=== PATIENT | male | born 1990 | race Caucasian/White ===

== ENCOUNTER 2021-10-26 06:15 | Outpatient (REF) | payer OTHER, SELFPAY ==
[2021-10-26 07:54] LABS: Alanine Aminotransferase 80 U/L (0-40); Albumin Level 4.5 g/dL (3.5-5.0); Alkaline Phosphatase 47 U/L (39-117); Anion Gap 14 (12-20); Aspartate Amino Transferase 70 U/L (5-37); Bilirubin Total 0.9 mg/dL (0.0-1.0); Blood Urea Nitrogen 15 mg/dL (9-16); Calcium 10.1 mg/dL (8.4-10.2); Carbon Dioxide 28 mmol/L (22-29); Chloride 100 mmol/L (96-108); Estimated Glomerular Filt Rate > 60; Glucose Fasting 127 mg/dL (60-99); Potassium 4.2 mmol/L (3.3-5.1); Sodium 138 mmol/L (135-145); Total Protein 7.8 g/dL (6.5-8.0); Uric Acid 5.6 mg/dL (3.4-7.0)
[2021-10-26 07:55] LABS: Estimated Average Glucose 103 mg/dL; Hemoglobin A1c % 5.2 %
[2021-10-26 08:14] LABS: TSH reflex Free T4 5.53 uIU/mL (0.32-4.0)
[2021-10-26 09:13] LABS: Free T4 (Free Thyroxine) 0.97 ng/dL (0.71-1.85)
== END 2021-10-26 06:16 | disposition home or self-care (01) ==
LOC: HO.LAB 06:15
PROVIDERS: PCP Physician Assistant; Visit Provider Physician Assistant
DX: Z13.1 Encounter for screening for diabetes mellitus (principal); E03.9 Hypothyroidism, unspecified; M10.9 Gout, unspecified
CPT/HCPCS: 36415; 80053; 83036; 84439; 84443; 84550

== ENCOUNTER 2022-06-10 16:04 | Outpatient (REF) | payer OTHER, SELFPAY ==
[2022-06-10 17:57] LABS: Alanine Aminotransferase 34 U/L (0-40); Alkaline Phosphatase 84 U/L (39-117); Anion Gap 11 (12-20); Aspartate Amino Transferase 44 U/L (5-37); Bilirubin Total 0.4 mg/dL (0.0-1.0); Blood Urea Nitrogen 16 mg/dL (9-16); Calcium 9.1 mg/dL (8.4-10.2); Carbon Dioxide 29 mmol/L (22-29); Chloride 100 mmol/L (96-108); Estimated Glomerular Filt Rate > 60; Glucose Random 101 mg/dL (60-115); Potassium 3.8 mmol/L (3.3-5.1); Sodium 136 mmol/L (135-145); TSH reflex Free T4 0.25 uIU/mL (0.32-4.0); Total Protein 7.9 g/dL (6.5-8.0)
[2022-06-10 18:43] LABS: Free T4 (Free Thyroxine) 1.11 ng/dL (0.71-1.85)
== END 2022-06-10 16:05 | disposition home or self-care (01) ==
LOC: HO.LAB 16:04
PROVIDERS: PCP Nurse Practitioner Family; Visit Provider Nurse Practitioner Family
DX: E03.9 Hypothyroidism, unspecified (principal)
CPT/HCPCS: 36415; 80053; 84439; 84443

== ENCOUNTER 2023-09-18 17:29 | Outpatient (AMB) | payer SELFPAY ==
[2023-09-18 17:31] VITALS: BP 120/88; PULSE 109; O2SAT 99; BMI 31.4
--- NOTE | 2023-09-18 17:31 | A.OFFPC_ITS ---
Vital Signs 09/18/23 17:31 Height 6 ft Weight 231 lb 4 oz BMI 31.4 BP 120/88 Blood Pressure Location Lt brachial Position Sitting Pulse 109 H Pulse Source Pulse Oximeter Pulse Oximetry (%) 99 Oxygen Delivery Method Room Air Intake Visit Reasons: Ray Larson PE Floor Nurse Required: No Accompanied by: Self / Same As Patient Allergies No Known Allergies Allergy (Verified 09/18/23 17:45) Medication List - Last Reconciled 09/18/23 by Toni Oliveira MD allopurinol 300 mg PO DAILY hydroxyzine HCl 50 mg PO Q8H PRN 30 days levothyroxine 100 mcg PO DAILY sertraline 50 mg PO QAM Tobacco use date assessed: 09/18/23 Dental Screening Dental Screen Date: 09/18/23 Did you have a dental visit in the last 12 months?: Yes Did you have a dental problem in the last 6 months where you did not have access to dental care?: No Was dental information given to patient?: Patient has dentist HPI Ray Larson PE HPI Details Patient comes in today for his annual physical examination - is transferring care from Jojo Michael, who is no longer with the practice Patient states that he has been experiencing recurrent upper back / interscapular pain for over a year now States that he has been seeing his chiropractor regularly for this and that chiropractic treatments that he has been getting helps but only partially and temporarily and he would now like to have this looked into further to hopefully figure out what is causing his back pain and take care of it more permanently Thinks that his back pain may have started over a year ago after he moved a 200 pound battery while at work as he's had no history of back pain or problems before that Adds that he's had some mass over both of his breasts that have been present for a few years now - states that the one on the left breast is slightly bigger and hurts at times Recalls that he has some ultrasound done a few years ago and was advised that his ultrasound came back normal Would like to see somebody about having these removed if possible He denies any headaches or dizziness Denies any chest pains, no shortness of breath No nausea /vomiting, no abdominal pain No change in bowel habits noted Denies any acute urinary symptoms [facility] Medical History (Updated 09/19/23 @ 02:47 by Toni Oliveira MD) Obesity (BMI 30-39.9) Elevated LFTs Anxiety disorder Acquired hypothyroidism Gout Surgical History (Updated 09/19/23 @ 02:11 by Toni Oliveira MD) History of eye surgery History of appendectomy History of shoulder surgery Family History Mother No problems noted. Father No problems noted. Social History Housing: House Alcohol intake: current Alcohol intake frequency: a few times a month Patient Tobacco Use Status: Never used Tobacco service: No Current occupational status: employed Cognitive needs: No Hearing needs: No Vision needs: No Questionnaire PHQ-9 Over the last 2 weeks, how often have you been bothered by any of the following problems? 1. Little interest or pleasure in doing things: not at all 2. Feeling down, depressed, or hopeless: not at all 3. Trouble falling or staying asleep, or sleeping too much: not at all 4. Feeling tired or having little energy: not at all 5. Poor appetite or overeating: not at all 6. Feeling bad about yourself - or that you are a failure or have let yourself or your family down: not at all 7. Trouble concentrating on things, such as reading the newspaper or watching television: not at all 8. Moving or speaking so slowly that other people could have noticed. Or the opposite - being so fidgety or restless that you have been moving around a lot more than usual: not at all 9. Thoughts that you would be better off or of hurting yourself in some way: not at all Total score: 0 Depression Screening Interpretation: Negative Depression Screening Done: Yes 94468 - PHQ-9 Billing: Yes Source: Developed by Drs. Chicho Barragan, Charisse Washington, Russel Alejo and colleagues, with an educational zoe from [employer]. Thrive Questionnaire Date Thrive assessed: 09/18/23 I am a: Patient What is your living situation today?: I have a steady place to live Within the past 12 months, did the food you bought not last and you didn't have the money to get more?: Never true Within the past 12 months, did you worry whether your food would run out before you got money to buy more?: Never true Do you have trouble paying for medicines?: No Do you have trouble getting transportation to medical appointments?: No Do you have trouble paying your heating and electricity bill?: No Do you have trouble taking care of your child, family member or friend?: No Do you have trouble with day-to-day activities such as bathing, preparing meals, shopping, managing finances, etc.?: No Are you currently unemployed and looking for a job?: No Are you interested in more education?: No Please select the resources that you would like help with: None Currently or been in a relationship where the following occur: no concerns reported THRIVE Score: 0 AUDIT C Alcohol Use Questionnaire (AUDIT-C) 1. How often do you have a drink containing alcohol?: Never 3. How often do you have six or more drinks on one occasion?: Never Total Score: 0 Score Reviewed/Action Taken: Yes IVY-7 AMB Questionnaire IVY-7 Date IVY - 7 assessed: 09/18/23 Feeling nervous, anxious, or on edge: 0 = Not at all Not being able to stop or control worryin = Not at all Worrying too much about different things: 0 = Not at all Trouble relaxin = Not at all Being so restless that it is hard to sit still: 0 = Not at all Becoming easily annoyed or irritable: 0 = Not at all Feeling afraid as if something awful might happen: 0 = Not at all Total IVY-7 score (0-4 normal; 5-9 mild; 10-14 moderate; 15-21 severe): 0 Source: Developed by Drs. Chicho Barragan, Charisse Washington, Russel Alejo and colleagues, with an educational zoe from [employer]. IVY-7 Assessment Billing IVY-7 Assessment Tool: IVY-7 Assessment 77590 Review of Systems Const Denies chills, Denies fatigue, Denies fever(s), Denies headache(s), Denies malaise and Denies weakness Eyes Denies blurry vision, Denies change in vision, Denies irritation and Denies itchy eyes ENT Denies dysphagia, Denies dizziness, Denies otalgia, Denies headache(s), Denies nasal congestion, Denies neck pain, Denies odynophagia and Denies sore throat Card Denies chest pain, Denies rapid heart rate, Denies irregular heart rhythm, Denies palpitations and Denies dyspnea Resp Denies chest congestion, Denies cough, Denies dyspnea and Denies wheezing GI Denies abdominal pain, Denies bloating, Denies constipation, Denies dysphagia, Denies heartburn, Denies diarrhea, Denies nausea, Denies odynophagia and Denies vomiting Denies hematuria, Denies difficulty urinating, Denies dysuria, Denies urinary frequency and Denies urinary urgency Musc Reports back pain (over the upper back in between the scapula), Denies arthralgias, Denies joint swelling, Denies muscle weakness and Denies neck pain Skin/Breast Reports breast mass (bilateral - left breast tissue is slightly tender on deep palpation), Denies change in pigmentation, Denies lesions, Denies rash and Denies unusual bruising Neuro Denies dizziness, Denies headache(s), Denies paresthesias and Denies weakness Psych Reports anxiety Endo Denies fatigue and Denies palpitations Aller/Immun Denies itchy eyes and Denies wheezing Physical exam (Primary Care) Vital Signs: Last Vital Signs Pulse 109 H 09/18/23 17:31 BP 120/88 09/18/23 17:31 Pulse Ox 99 09/18/23 17:31 Oxygen Delivery Method Room Air 09/18/23 17:31 BMI result Body Mass Index 31.4 Tobacco/Smoking Status: Tobacco use Status Tobacco use date assessed 09/18/23 09/18/23 17:37 Patient Tobacco Use Status Never used Tobacco 09/18/23 17:37 PHQ-9: PHQ-9 Score PHQ-9: Total score 0 09/18/23 17:52 Depression Screening Interpretation: Negative Thrive Assessment: Date of Thrive Assessment Date Thrive assessed 09/18/23 09/18/23 17:37 Currently or been in a relationship where the following occur: no concerns reported Const General: no acute distress, alert and awake Orientation/consciousness: patient oriented x3 HENMT Head: Yes normocephalic and Yes atraumatic Ears: external ears normal, TM's normal bilaterally and EAC's normal General nose exam: No nasal discharge present Face and sinus: Yes normal facial exam and Yes sinuses nontender Teeth and gingiva: dentition normal Throat: Yes posterior oropharynx normal and Yes tonsils normal (no TP congestion) Eyes Eyelids: Yes eyelids normal Conjunctivae: conjunctivae normal Pupils: Equal, round and reactive pupils present EOM: EOMs intact bilaterally Neck Neck: Yes no lymphadenopathy and Yes supple Thyroid: Thyroid normal Chest Other: (+) palpable and slightly enlarged breast mass/tissue bilaterally - the left side is slightly larger and slightly tender on deep palpation Resp Auscultation: clear to auscultation bilaterally, no rales and no wheezes Cardio Rate: regular rate Rhythm: regular rhythm Heart sounds: no murmurs GI Palpation (GI): Soft to palpation, nontender and No hepatosplenomegaly present Auscultation: normal bowel sounds General: Yes no CVA tenderness Back/Spine/Pelvis Other: (+) mild tenderness on deep palpation over the thoracic spine along the interscapular area Back: no CVA tenderness Thoracic/Lumbar Spine: No lumbar spinal tenderness Skin Lesions: no lesions Rashes: no rashes Neuro General: patient oriented x3, moves all extremities, no focal motor deficits and CN's II-XI intact bilaterally Cranial nerves: Yes Equal, round and reactive pupils present Cognition (Neuro): normal cognition Gait exam (Neuro): Normal gait present Extrem General: Yes no clubbing, cyanosis or edema Assessment and Plan Assessment & Plan (1) Annual physical exam: Code(s): Z00.00 - Encounter for general adult medical examination without abnormal findings Plan: Check labs (2) Acquired hypothyroidism: Code(s): E03.9 - Hypothyroidism, unspecified Plan: Continue Levothyroxine 100 mcg QD Will recheck his TFTs for follow up (3) Gout: Code(s): M10.9 - Gout, unspecified Qualifiers: Gout site: unspecified site Gout etiology: unspecified cause Chronicity: unspecified Qualified Code(s): M10.9 - Gout, unspecified Plan: Patient's serum uric acid level was normal at 5.6 when last checked in October 2021 Reinforced low purine diet Continue Allopurinol 300 mg QD (4) Elevated LFTs: Code(s): R79.89 - Other specified abnormal findings of blood chemistry Plan: (+) Hx of elevated LFTs - work ups done in the past have all been reportedly negative His LFTs were normal or near normal when they were last checked in June 2022 Will have him recheck his LFTs for follow up (5) Impaired fasting glucose: Code(s): R73.01 - Impaired fasting glucose Plan: His FBS was elevated at 127 mg/dl but HgbA1c was normal at 5.2% when last checked in October 2021 Reinforced low calorie/low carb diet Will recheck his FBS and also HgbA1c for follow up (6) Interscapular pain: Code(s): M54.89 - Other dorsalgia Plan: Will send patient for thoracic spine x-rays for further evaluation (7) Gynecomastia: Code(s): N62 - Hypertrophy of breast Plan: He is advised that the cyst/mass that he has on both breasts are normal breast tissues that in his case, are enlarged more than usual He had breast ultrasound and mammography done back in October 2019 that showed mild gynecomastia in the right breast and normal breast tissues in the left side Advised that surgical excision of the breast tissues are not advisable and would not be the recommended treatment for gynecomastia and that the proper course of action here would be to work him up further to see if we can identify the main cause of his enlarged breast tissues Will send him for some additional labs and tests WILLARD for further evaluation He is currently not taking any medications that can contribute to his gynecomastia Will also send him for renal and testicular ultrasound for further evaluation when he has health insurance coverage again - states that he currently does not have any insurance coverage and is trying to get his insurance back (8) Anxiety disorder: Code(s): F41.9 - Anxiety disorder, unspecified Qualifiers: Anxiety disorder type: generalized anxiety disorder Qualified Code(s): F41.1 - Generalized anxiety disorder Plan: Continue Sertraline 50 mg QD and Hydroxyzine 50 mg TID PRN (9) Obesity (BMI 30-39.9): Code(s): E66.9 - Obesity, unspecified Plan: Reinforced diet/exercise as tolerated/lose weight Orders: Orders Comprehensive [place]. Panel Fast 09/18/23 E78.00 - Pure hypercholesterolemia, unspecified, Z00.00 - Encounter for general adult medical examination without abnormal findings UA CC w/rflx Micro + Cult 09/18/23 R30.0 - Dysuria, Z00.00 - Encounter for general adult medical examination without abnormal findings Prostate Specific Antigen 09/18/23 N40.0 - Benign prostatic hyperplasia without lower urinary tract symptoms, N62 - Hypertrophy of breast XR thoracic spine 3V 09/18/23 M54.9 - Dorsalgia, unspecified Complete Blood Count Auto Diff 09/18/23 D64.9 - Anemia, unspecified, Z00.00 - Encounter for general adult medical examination without abnormal findings Lipid Panel 09/18/23 E78.00 - Pure hypercholesterolemia, unspecified, Z00.00 - Encounter for general adult medical examination without abnormal findings Thyroid Stimulating Hormone 09/18/23 E03.9 - Hypothyroidism, unspecified, Z00.00 - Encounter for general adult medical examination without abnormal findings Free T4 (Free Thyroxine) 09/18/23 E03.9 - Hypothyroidism, unspecified, Z00.00 - Encounter for general adult medical examination without abnormal findings Vitamin D 25-OH Total 09/18/23 E55.9 - Vitamin D deficiency, unspecified, Z00.00 - Encounter for general adult medical examination without abnormal findings Uric Acid 09/18/23 M10.9 - Gout, unspecified Follicle Stimulating Hormone Today N62 - Hypertrophy of breast Lutenizing Hormone Today N62 - Hypertrophy of breast HCG Tumor Marker Today N62 - Hypertrophy of breast Coding Level of Care Code Est Pt Prev Care 18-39y(22531) Diagnoses Annual physical exam Z00.00 Acquired hypothyroidism E03.9 Gout, unspecified cause, unspecified chronicity, unspecified site M10.9 Gout site: unspecified site Gout etiology: unspecified cause Chronicity: unspecified Elevated LFTs R79.89 Impaired fasting glucose R73.01 Interscapular pain M54.89 Gynecomastia N62 Generalized anxiety disorder F41.1 Anxiety disorder type: generalized anxiety disorder Obesity (BMI 30-39.9) E66.9 Additional Codes IVY-7 Assessment Billing - IVY-7 Assessment Tool: IVY-7 Assessment 44003 ([id number])
== END 2023-09-18 18:03 | disposition home or self-care (01) ==
PROVIDERS: PCP Internal Medicine; Visit Provider Internal Medicine
DX: Z00.00 Encounter for general adult medical examination without abnormal findings (principal); E03.9 Hypothyroidism, unspecified; Z68.31 Body mass index [BMI] 31.0-31.9, adult; E66.9 Obesity, unspecified; M10.9 Gout, unspecified; R79.89 Other specified abnormal findings of blood chemistry; R73.01 Impaired fasting glucose; M54.89 Other dorsalgia; N62 Hypertrophy of breast; F41.1 Generalized anxiety disorder
CPT/HCPCS: 99395

== ENCOUNTER 2023-12-22 12:32 | Outpatient (REF) | payer OTHER, SELFPAY ==
[2023-12-22 12:50] LABS: MANUAL DIFF FLAG NO
[2023-12-22 14:28] LABS: Basophils Percent Auto 0.6 % (0-2); Eosinophils Absolute Auto 0.1 X10*3/uL (0.0-0.4); Eosinophils Percent Auto 1.8 % (0-4); Hematocrit 42.8 % (42.0-52.0); Hemoglobin 14.6 g/dl (14.0-18.0); Imm Gran Abs Auto 0.03 X10*3/uL (0.00-0.03); Imm Gran Pct Auto 0.6 % (0.0-0.4); Lymphocytes Absolute Auto 2.2 X10*3/uL (1.2-4.9); Lymphocytes Percent Auto 43.1 % (20-40); Mean Corpuscular HGB Conc 34.1 g/dl (31.0-36.0); Mean Corpuscular Hemoglobin 32.6 pg (27.0-33.0); Mean Corpuscular Volume 95.5 fL (80.0-98.0); Mean Platelet Volume 9.8 fL (9.4-12.4); Monocytes Absolute Auto 0.5 X10*3/uL (0.1-1.2); Monocytes Percent Auto 10.5 % (2-11); Neutrophils Absolute Auto 2.2 x10*3/uL (2.0-8.3); Neutrophils Percent Auto 43.4 % (45-73); Platelet Count 244 X10*3/uL (160-400); Red Blood Count 4.48 X10*6/uL (4.60-5.80); Red Cell Distribution Width 12.4 % (11.0-16.0)
[2023-12-22 14:34] LABS: Appearance Urine Clear; Color Urine Yellow; Glucose Urine UA Negative (Negative); Leukocyte Esterase Urine Negative (Negative); Nitrite Urine Negative (Negative); PH 6.5 (5.0-9.0); Urine Blood Negative (Negative); Urine Ketones Negative (Negative); Urine Protein Negative (Neg-Trace)
[2023-12-22 15:02] LABS: Alanine Aminotransferase 44 U/L (0-40); Albumin Level 4.7 g/dL (3.5-5.0); Alkaline Phosphatase 49 U/L (39-117); Anion Gap 16 (12-20); Aspartate Amino Transferase 42 U/L (5-37); Bilirubin Total 0.6 mg/dL (0.0-1.0); Blood Urea Nitrogen 13 mg/dL (9-16); Calcium 10.1 mg/dL (8.4-10.2); Carbon Dioxide 28 mmol/L (22-29); Chloride 103 mmol/L (96-108); Cholesterol 243 mg/dL (<200); Estimated Glomerular Filt Rate > 60; Glucose Fasting 100 mg/dL (60-99); HDL Cholesterol 43 mg/dL (>40); LDL Cholesterol Calculated 175 mg/dL (<100); Potassium 3.8 mmol/L (3.3-5.1); Sodium 143 mmol/L (135-145); Total Protein 8.7 g/dL (6.5-8.0); Triglycerides 126 mg/dL (<150)
[2023-12-22 15:17] LABS: Free T4 (Free Thyroxine) 0.94 ng/dL (0.71-1.85); Thyroid Stimulating Hormone 3.09 uIU/mL (0.32-4.0); Uric Acid 6.4 mg/dL (3.4-7.0); Vitamin D 25-OH Total 36.6 ng/mL (>30)
[2023-12-22 15:27] LABS: Prostate Specific Antigen 0.26 ng/mL (<0.05-4.0)
[2023-12-24 08:14] LABS: Follicle Stimulating Hormone 10.7 mIU/mL (1.4-12.8); HCG Tumor Marker <5 mIU/mL (<5); Lutenizing Hormone 6.3 mIU/mL (1.5-9.3)
== END 2023-12-22 12:33 | disposition home or self-care (01) ==
LOC: HO.LAB 12:32
PROVIDERS: PCP Internal Medicine; Visit Provider Internal Medicine
DX: Z00.00 Encounter for general adult medical examination without abnormal findings (principal); E78.00 Pure hypercholesterolemia, unspecified; R30.0 Dysuria; N40.0 Benign prostatic hyperplasia without lower urinary tract symptoms; N62 Hypertrophy of breast; E03.9 Hypothyroidism, unspecified; M10.9 Gout, unspecified; D64.9 Anemia, unspecified; E55.9 Vitamin D deficiency, unspecified; Z12.5 Encounter for screening for malignant neoplasm of prostate
CPT/HCPCS: 36415; 80053; 80061; 81003; 82306; 83001; 83002; 84153; 84439; 84443; 84550; 84702; 85025

== ENCOUNTER 2024-01-18 23:34 | Emergency (ER) | payer OTHER, SELFPAY ==
[2024-01-18 23:42] VITALS: BP 134/78; PULSE 114; RESP 20; TEMP 36.8; O2SAT 95
--- NOTE | 2024-01-18 23:48 | ED.ALCOHOL ---
HPI - Alcohol General Stated Complaint: etoh neck and back pain Time Seen by Provider: 01/18/24 23:36 Source: patient and EMS Mode of arrival: EMS Limitations: no limitations History of Present Illness ED Provider: Dr. Aurelia Regalado HPI narrative: Patient comes to the emergency room complaining of right-sided neck pain. Patient states that he was drinking alcohol and then had a severe pain on the right side of his neck radiating towards the top of the head, around the neck. Patient states that he was able to feel his muscle spasming. Patient tried to massage it but it did not work. Patient became scared and called 911. Patient states that he was sitting when this happened, denies any recent trauma or falls Related Data Previous Rx's ?Medication ?Instructions ?Recorded allopurinol 300 mg tablet 300 mg PO DAILY #90 tabs 06/26/23 hydroxyzine HCl 50 mg tablet 50 mg PO Q8H PRN anxiety 30 days 06/26/23 #90 tabs sertraline 50 mg tablet 50 mg PO QAM #90 tabs 06/26/23 levothyroxine 100 mcg tablet 100 mcg PO DAILY #30 tabs 01/01/24 cyclobenzaprine 10 mg tablet 10 mg PO TID PRN muscle spasm #7 01/18/24 tabs Allergies Allergy/AdvReac Type Severity Reaction Status Date / Time No Known Allergies Allergy Verified 09/18/23 17:45 Review of Systems Review of Systems: Constitutional : No Weight loss, No Fever, No Chills, No Night Sweats, No Fatigue, No Malaise ENT/Mouth : No Hearing loss, No Ear Pain, No Nasal Congestion, No Sinus Pain, No Hoarseness, No sore throat, No Rhinorrhea, No Swallowing Difficulty Eyes: No Eye Pain, No Swelling, No Redness, No Foreign Body, No Discharge, No Vision Changes Cardiovascular : No Chest Pain, No SOB, No Dyspnea on Exertion, No Orthopnea, No Edema, No Palpitations Respiratory : No Cough, No Sputum, No Wheezing, No Smoke Exposure, No Dyspnea Gastrointestinal : No Nausea, No Vomiting, No Diarrhea, No Constipation, No abdominal Pain, No Hematochezia, No Melena Genitourinary : no irregular bleeding, No Dysuria, No Urinary Frequency, No Hematuria, No Urinary Incontinence, No Urgency, No Flank Pain, No Urinary Flow Changes, No Hesitancy Musculoskeletal : Complaining of a muscle spasm on the right side of the neck posteriorly No Myalgias, No Joint Swelling Skin : No Skin Lesions, No rash Neuro : No Weakness, No Numbness, No Paresthesias, No Loss of Consciousness, No Dizziness, No Headache Psych : No Anxiety/Panic, No Depression, No SI/HI/AH/VH, No Social Issues, admits to drinking alcohol Heme/Lymph: No Bruising, No Bleeding,No Lymphadenopathy Endocrine : No Polyuria, No Polydipsia, No Temperature Intolerance [facility] Past Medical History Medical History (Updated 01/18/24 @ 23:51 by Aurelia Regalado MD) Obesity (BMI 30-39.9) Elevated LFTs Anxiety disorder Acquired hypothyroidism Gout Surgical History (Updated 09/19/23 @ 02:11 by Toni Oliveira MD) History of eye surgery History of appendectomy History of shoulder surgery Family History Family History Mother No problems noted. Father No problems noted. Social History Social History Housing: House Alcohol intake: current Alcohol intake frequency: a few times a month Patient Tobacco Use Status: Never used Tobacco service: No Current occupational status: employed Cognitive needs: No Hearing needs: No Vision needs: No Physical Exam ED Vital Signs: Vital Signs - 24 hr 01/18/24 23:42 Temperature 98.2 F Pulse Rate 114 H Respiratory Rate 20 Blood Pressure 134/78 Pulse Oximetry 95 Oxygen Delivery Method Room Air Const Other: Appearance: Alert. Oriented X3. No acute distress. Eyes: Pupils equal, round and reactive to light. ENT: Pharynx normal. Neck: No C-spine tenderness, normal Section extension, palpable spasm around the sternocleidomastoid muscle. CVS: Normal heart rate and rhythm. Pulses normal. Normal S1 and S2 Respiratory: No respiratory distress. Breath sounds normal. No Wheezing. No rales Abdomen: Soft and nontender. No rigidity. No distention. Skin: Skin warm and dry. Normal skin color. Normal skin turgor. Extremities: No lower extremity edema. No Lacerations. No Rash Neuro: Oriented X 3. No motor deficit. No sensory deficit. Moving all extremities. No slurred speech. CN 2 through 12 grossly intact Psych: calm, cooperative, normal affect Course Course Course Narrative: -patient had a muscle spasm, patient was given p.o. diazepam here in the ED. -patient is awake, alert and oriented x3, seems a bit intoxicated but patient is coherent Medical Decision Making Medical Decision Making MDM Narrative: -patient got 2 mg of p.o. diazepam for muscle spasms -patient is not SI or HI -plan: metabolize to freedom and discharged with muscle relaxants -physician observation started at 23:50 Differential Diagnosis Differential Diagnoses: The differential diagnosis associated with the presentation includes (Anxiety, muscle spasm, contusion) Discharge Plan Discharge Clinical Impression: Muscle spasm, Alcohol intoxication Patient Disposition: Home, Self-Care Instructions: Abuse of Alcohol (ED), Muscle Spasm (ED) Additional Instructions: Please follow-up with your primary care physician tomorrow. If you have any worsening or new symptoms, please return to the emergency room or call 911 Prescriptions: New cyclobenzaprine 10 mg tablet 10 mg PO TID PRN (Reason: muscle spasm) Qty: 7 0RF No Action allopurinol 300 mg tablet 300 mg PO DAILY Qty: 90 2RF hydroxyzine HCl 50 mg tablet 50 mg PO Q8H PRN (Reason: anxiety) 30 Days Qty: 90 3RF sertraline 50 mg tablet 50 mg PO QAM Qty: 90 1RF levothyroxine 100 mcg tablet 100 mcg PO DAILY Qty: 30 0RF Print Language: [place]
[2024-01-18 23:59] VITALS: BP 147/83; PULSE 114; TEMP 36.9; O2SAT 95; BMI 16.3
--- NOTE | 2024-01-19 00:24 | PC.NURSE ---
Pt is a 33 y/o male who presents from home for a c/o atraumatic back/neck pain that started sudden onset while sitting on a couch watching TV. History is significant for known chronic back pain, but pt reports the pain tonight is vastly different from his back pain in the past. At onset, pain in upper back/neck was accompanied by a headache and some dizziness. Pt otherwise denies numbness/tingling in extremities, problems with voiding, visual changes, and any problems or concerns with balance and coordination. Able to move all extremities as expected. Pt further denies any recent illness/fever, recent travel, and any chest pain, difficulty breathing, or abd pain. Reports consuming approximately 6 hard seltzers and smoking approximatley 2 joints between 1800 hours and onset. All medications taken as prescribed and food/fluid intake is WNL.
[2024-01-19] MEDS: diazePAM 2 MG TABLET PO (00:33)
[2024-01-19 06:14] VITALS: BP 122/74; PULSE 78; RESP 17; TEMP 36.6; O2SAT 94
--- NOTE | 2024-01-19 06:30 | PC.NURSE ---
Pt is resting in bed, intermittently sleeping, appears comfortable, no acute distress observed. Pt is easily arousable with verbal stimuli, is calm and cooperative with staff. Changes positions in bed independently as desired. Pt is waiting to be seen by a provider. Will continue to monitor for changes.
[2024-01-19 08:00] VITALS: BP 136/94; PULSE 89; RESP 16; TEMP 36.8; O2SAT 96
== END 2024-01-19 08:15 | disposition home or self-care (01) ==
PROVIDERS: Emergency Provider Emergency Medicine
DX: M62.838 Other muscle spasm (principal); F10.920 Alcohol use, unspecified with intoxication, uncomplicated; Y90.9 Presence of alcohol in blood, level not specified; M54.2 Cervicalgia; R51.9 Headache, unspecified; Z79.899 Other long term (current) drug therapy
CPT/HCPCS: 99284

== ENCOUNTER 2024-09-25 16:28 | Outpatient (AMB) | payer OTHER, SELFPAY ==
[2024-09-25 16:30] VITALS: BP 142/86; PULSE 123; O2SAT 97; BMI 34.8
--- NOTE | 2024-09-25 16:30 | MHC.PC.OV ---
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 Accompanied by: Self / Same As Patient Allergies No Known Allergies Allergy (Verified 09/25/24 16:46) Medication List - Last Reconciled 09/25/24 by Toni Oliveira MD allopurinol 300 mg PO DAILY cyclobenzaprine 10 mg PO TID PRN hydroxyzine HCl 50 mg PO Q8H PRN 30 days levothyroxine 100 mcg PO DAILY sertraline 50 mg PO QAM Tobacco use date assessed: 09/25/24 Dental Screening Dental Screen Date: 09/25/24 Did you have a dental visit in the last 12 months?: Yes Did you have a dental problem in the last 6 months where you did not have access to dental care?: No Was dental information given to patient?: Patient has dentist HPI annual exam HPI Details Patient comes in today for his annual physical examination States that he continues to experience frequent/persistent pain and numbness in both of his feet and that his symptoms have been going on for some time now He described his feet pain as a deep-seated pain and burning sensation that often feels worse at night and when he is on his feet for a long time He was seen by podiatry for the same complaint back in October of 2023 and was started on some Gabapentin 300 mg Q HS at the time but patient states that after he read the possible side effects of the medication, he never took it States that he also never went for the x-rays that we ordered for him and would like to have these ordered again and he will try to get these done WILLARD Adds that his father as well as a few other family members have similar complaints and they have been advised that there is likely a hereditary or genetic predisposition in the family for some form of neuropathy Patient states that he feels okay otherwise He denies any headaches or dizziness Denies any chest pains, no increased SOB No nausea/vomiting, no abdominal pain No change in bowel habits noted He denies any acute urinary symptoms PFS Medical History (Updated 09/26/24 @ 01:38 by Toni Oliveira MD) Pure hypercholesterolemia Obesity (BMI 30-39.9) Elevated LFTs Anxiety disorder Acquired hypothyroidism Gout Surgical History History of eye surgery History of appendectomy History of shoulder surgery Family History Mother No problems noted. Father No problems noted. Social History Housing: House Alcohol intake: current Alcohol intake frequency: a few times a month Patient Tobacco Use Status: Never used Tobacco e-Cigarette/Vaping Use: Never Used service: No Current occupational status: employed Cognitive needs: No Hearing needs: No Vision needs: No Questionnaire PHQ-9 Over the last 2 weeks, how often have you been bothered by any of the following problems? 1. Little interest or pleasure in doing things: not at all 2. Feeling down, depressed, or hopeless: not at all 3. Trouble falling or staying asleep, or sleeping too much: not at all 4. Feeling tired or having little energy: not at all 5. Poor appetite or overeating: not at all 6. Feeling bad about yourself - or that you are a failure or have let yourself or your family down: not at all 7. Trouble concentrating on things, such as reading the newspaper or watching television: not at all 8. Moving or speaking so slowly that other people could have noticed. Or the opposite - being so fidgety or restless that you have been moving around a lot more than usual: not at all 9. Thoughts that you would be better off or of hurting yourself in some way: not at all Total score: 0 Depression Screening Interpretation: Negative Depression Screening Done: Yes 52660 - PHQ-9 Billing: Yes Source: Developed by Drs. Chicho Barragan, Charisse Washington, Russel Alejo and colleagues, with an educational zoe from [employer]. Thrive Questionnaire Date Thrive assessed: 09/25/24 I am a: Patient What is your living situation today?: I have a steady place to live Within the past 12 months, did the food you bought not last and you didn't have the money to get more?: I choose not to answer this question Within the past 12 months, did you worry whether your food would run out before you got money to buy more?: I choose not to answer this question Do you have trouble paying for medicines?: I choose not to answer this question Do you have trouble getting transportation to medical appointments?: I choose not to answer this question Do you have trouble paying your heating and electricity bill?: I choose not to answer this question Do you have trouble taking care of your child, family member or friend?: I choose not to answer this question Do you have trouble with day-to-day activities such as bathing, preparing meals, shopping, managing finances, etc.?: I choose not to answer this question Are you currently unemployed and looking for a job?: I choose not to answer this question Are you interested in more education?: I choose not to answer this question Please select the resources that you would like help with: None Currently or been in a relationship where the following occur: I choose not to answer THRIVE Score: 0 AUDIT C Alcohol Use Questionnaire (AUDIT-C) 1. How often do you have a drink containing alcohol?: 2-3 times a week 2. How many drinks containing alcohol do you have on a typical day when you are drinking?: 3 or 4 3. How often do you have six or more drinks on one occasion?: Less than monthly Total Score: 5 Score Reviewed/Action Taken: Yes IVY-7 AMB Questionnaire IVY-7 Date IVY - 7 assessed: 09/25/24 Feeling nervous, anxious, or on edge: 0 = Not at all Not being able to stop or control worryin = Not at all Worrying too much about different things: 0 = Not at all Trouble relaxin = Not at all Being so restless that it is hard to sit still: 0 = Not at all Becoming easily annoyed or irritable: 0 = Not at all Feeling afraid as if something awful might happen: 0 = Not at all Total IVY-7 score (0-4 normal; 5-9 mild; 10-14 moderate; 15-21 severe): 0 Source: Developed by Drs. Chicho Barragan, Charisse Washington, Russel Alejo and colleagues, with an educational zoe from [employer]. Review of Systems Const Denies chills, Denies fatigue, Denies fever(s), Denies headache(s), Denies malaise and Denies weakness Eyes Denies blurry vision, Denies change in vision, Denies irritation and Denies itchy eyes ENT Denies dysphagia, Denies dizziness, Denies otalgia, Denies headache(s), Denies nasal congestion, Denies neck pain, Denies odynophagia and Denies sore throat Card Denies chest pain, Denies rapid heart rate, Denies irregular heart rhythm, Denies palpitations and Denies dyspnea Resp Denies chest congestion, Denies cough, Denies dyspnea and Denies wheezing GI Denies abdominal pain, Denies bloating, Denies constipation, Denies dysphagia, Denies heartburn, Denies diarrhea, Denies nausea, Denies odynophagia and Denies vomiting Denies hematuria, Denies difficulty urinating, Denies dysuria, Denies urinary frequency and Denies urinary urgency Musc Denies back pain, Denies arthralgias, Denies joint swelling, Denies muscle weakness, Denies neck pain and Reports numbness (in both feet, on and off) Skin/Breast Denies change in pigmentation, Denies lesions, Denies rash and Denies unusual bruising Neuro Reports as per HPI, Denies dizziness, Denies headache(s), Reports numbness (in both feet, on and off), Reports paresthesias (in both feet) and Denies weakness Endo Denies fatigue and Denies palpitations Aller/Immun Denies itchy eyes and Denies wheezing Physical exam (Primary Care) Vital Signs: Last Vital Signs Pulse 123 H 09/25/24 16:30 BP 142/86 H 09/25/24 16:30 Pulse Ox 97 09/25/24 16:30 Oxygen Delivery Method Room Air 09/25/24 16:30 BMI result Body Mass Index 34.8 Tobacco/Smoking Status: Tobacco use Status Tobacco use date assessed 09/25/24 09/25/24 16:37 Patient Tobacco Use Status Never used Tobacco 09/25/24 16:37 e-Cigarette/Vaping Use Never Used 09/25/24 16:37 PHQ-9: PHQ-9 Score PHQ-9: Total score 0 09/26/24 01:21 Depression Screening Interpretation: Negative Thrive Assessment: Date of Thrive Assessment Date Thrive assessed 09/25/24 09/25/24 16:37 Currently or been in a relationship where the following occur: I choose not to answer Const General: no acute distress, alert and awake Orientation/consciousness: patient oriented x3 HENMT Head: Yes normocephalic and Yes atraumatic Ears: external ears normal, TM's normal bilaterally and EAC's normal General nose exam: No nasal discharge present Face and sinus: Yes normal facial exam and Yes sinuses nontender Teeth and gingiva: dentition normal Throat: Yes posterior oropharynx normal and Yes tonsils normal (no TP congestion) Eyes Eyelids: Yes eyelids normal Conjunctivae: conjunctivae normal Pupils: Equal, round and reactive pupils present EOM: EOMs intact bilaterally Neck Neck: Yes no lymphadenopathy and Yes supple Thyroid: Thyroid normal Resp Auscultation: clear to auscultation bilaterally, no rales and no wheezes Cardio Rate: regular rate Rhythm: regular rhythm Heart sounds: no murmurs GI Palpation (GI): Soft to palpation, nontender and No hepatosplenomegaly present Auscultation: normal bowel sounds General: Yes no CVA tenderness Back/Spine/Pelvis Back: no CVA tenderness Thoracic/Lumbar Spine: thoracic and lumbar spine normal to inspection Skin Lesions: no lesions Rashes: no rashes Neuro General: patient oriented x3, moves all extremities, no focal motor deficits and CN's II-XI intact bilaterally Cranial nerves: Yes Equal, round and reactive pupils present Cognition (Neuro): normal cognition Gait exam (Neuro): Normal gait present Extrem General: Yes no clubbing, cyanosis or edema Coding Level of Care Code Est Pt Prev Care 18-39y(66009) Diagnoses Annual physical exam Z00.00 Acquired hypothyroidism E03.9 Gout, unspecified cause, unspecified chronicity, unspecified site M10.9 Chronicity: unspecified Gout etiology: unspecified cause Gout site: unspecified site Pure hypercholesterolemia E78.00 Elevated LFTs R79.89 Impaired fasting glucose R73.01 Neuropathic pain of both feet G57.93 Gynecomastia N62 Anxiety F41.9 Obesity (BMI 30-39.9) E66.9 Additional Codes PHQ-9 - 58566 - PHQ-9 Billing: Yes ([id number]) Assessment & Plan Assessment & Plan (1) Annual physical exam: Code(s): Z00.00 - Encounter for general adult medical examination without abnormal findings Category: Medical Plan: Check labs (2) Acquired hypothyroidism: Code(s): E03.9 - Hypothyroidism, unspecified Category: Medical Plan: Continue Levothyroxine 100 mcg QD Will recheck his TFTs for follow up (3) Gout: Code(s): M10.9 - Gout, unspecified Category: Medical Qualifiers: Chronicity: unspecified Gout etiology: unspecified cause Gout site: unspecified site Qualified Code(s): M10.9 - Gout, unspecified Plan: Reinforced low purine diet Patient states that he has not had any flare ups of gout over the past year and his serum uric acid level has been normal when checked over the past couple of years Continue Allopurinol 300 mg QD for now Will recheck his serum uric acid level WILLARD for follow up (4) Pure hypercholesterolemia: Code(s): E78.00 - Pure hypercholesterolemia, unspecified Category: Medical Plan: Patient is advised/reminded that his cholesterol level was elevated when last checked about a year ago, with his total cholesterol at 243 mg/dl and LDL cholesterol at 175 mg/dl back in December 2023 Reinforced low cholesterol diet Will recheck his fasting lipids for follow up (5) Elevated LFTs: Code(s): R79.89 - Other specified abnormal findings of blood chemistry Category: Medical Plan: His LFTs were again slightly elevated when they were last checked in December 2023, likely due to hepatosteatosis related to his weight Will recheck his LFTs for follow up and will continue to monitor his LFTs regularly (6) Impaired fasting glucose: Code(s): R73.01 - Impaired fasting glucose Category: Medical Plan: His FBS was borderline at 100 mg/dl when last checked in December 2023; his HgbA1c was normal at 5.2% when checked a couple of years ago Reinforced low calorie/low carb diet Will recheck his FBS and HgbA1c for follow up (7) Neuropathic pain of both feet: Code(s): G57.93 - Unspecified mononeuropathy of bilateral lower limbs Category: Medical Plan: He was seen and evaluated for this issue by podiatry last year and was advised that he likely has neuropathy of both feet He was started on a trial of Gabapentin 300 mg Q HS but patient decided not to take the Rx as he does not like the potential side effects listed on the PI of the Rx He was also sent for x-rays of both feet at the time but he did not get these done - would like to have his x-rays ordered again and he will try to get these done [facility] - x-rays of both feet reordered per request Patient reports (+) strong family history of neuropathy - CMT (Mdtbzbi-Kmjal-Kinmu disease) should be considered in the differential Will send patient for now for EMG and NCV of both lower extremities for further evaluation Will also include some additional labs to his current orders for further evaluation Have advised patient that at some point, genetic testing may be required or helpful if his test results strongly suggest a hereditary cause of his neuropathic symptoms (8) Gynecomastia: Code(s): N62 - Hypertrophy of breast Category: Medical Plan: He has had breast US done a few years ago in 2019 that revealed (+) mild gynecomastia on the right breast but normal left breast tissues Labs done last year for further evaluation have been unrevealing Will check his serum estrogen and testosterone level for further evaluation Have discussed with patient as well last year that his weight may be contributing to his gynecomastia He did request for surgical referral for excision but he has been advised that as this is considered a cosmetic procedure, it may not be covered by insurance but we can consider referring him for surgical consultation if all of his work ups come back normal or negative (9) Anxiety: Code(s): F41.9 - Anxiety disorder, unspecified Category: Medical Plan: Continue Sertraline 50 mg QD and Hydroxyzine 50 mg TID PRN (10) Obesity (BMI 30-39.9): Code(s): E66.9 - Obesity, unspecified Category: Medical Plan: Reinforced diet/exercise as tolerated/lose weight Plan Follow up in 6 months Orders: Orders NE nerve conduction velocity 09/25/24 G57.93 - Unspecified mononeuropathy of bilateral lower limbs, R20.0 - Anesthesia of skin, R20.2 - Paresthesia of skin NE electromyogram (EMG) 09/25/24 G57.93 - Unspecified mononeuropathy of bilateral lower limbs, R20.0 - Anesthesia of skin, R20.2 - Paresthesia of skin Comprehensive [place]. Panel Fast 09/25/24 E78.00 - Pure hypercholesterolemia, unspecified, G57.93 - Unspecified mononeuropathy of bilateral lower limbs, M25.50 - Pain in unspecified joint UA CC w/rflx Micro + Cult 09/25/24 G57.93 - Unspecified mononeuropathy of bilateral lower limbs, M25.50 - Pain in unspecified joint, R30.0 - Dysuria Vitamin B12 and Folate 09/25/24 E53.8 - Deficiency of other specified B group vitamins, G57.93 - Unspecified mononeuropathy of bilateral lower limbs, M25.50 - Pain in unspecified joint OMA Reflex Titer and Pattern 09/25/24 G57.93 - Unspecified mononeuropathy of bilateral lower limbs, M25.50 - Pain in unspecified joint Rheumatoid Factor 09/25/24 G57.93 - Unspecified mononeuropathy of bilateral lower limbs, M25.50 - Pain in unspecified joint C Reactive Protein 09/25/24 G57.93 - Unspecified mononeuropathy of bilateral lower limbs, M25.50 - Pain in unspecified joint Erythrocyte Sedimentation Rate 09/25/24 G57.93 - Unspecified mononeuropathy of bilateral lower limbs, M25.50 - Pain in unspecified joint, M79.7 - Fibromyalgia XR foot RT min 3V 09/25/24 G57.93 - Unspecified mononeuropathy of bilateral lower limbs Estrogen 09/25/24 N62 - Hypertrophy of breast Prolactin 09/25/24 N62 - Hypertrophy of breast Complete Blood Count Auto Diff 09/25/24 D64.9 - Anemia, unspecified, G57.93 - Unspecified mononeuropathy of bilateral lower limbs, M25.50 - Pain in unspecified joint Lipid Panel 09/25/24 E78.00 - Pure hypercholesterolemia, unspecified, G57.93 - Unspecified mononeuropathy of bilateral lower limbs, M25.50 - Pain in unspecified joint Vitamin D 25-OH Total 09/25/24 E55.9 - Vitamin D deficiency, unspecified, G57.93 - Unspecified mononeuropathy of bilateral lower limbs, M25.50 - Pain in unspecified joint XR foot LT min 3V 09/25/24 G57.93 - Unspecified mononeuropathy of bilateral lower limbs Free T4 (Free Thyroxine) 09/25/24 E03.9 - Hypothyroidism, unspecified Uric Acid 09/25/24 M10.9 - Gout, unspecified Thyroid Stimulating Hormone 09/25/24 E03.9 - Hypothyroidism, unspecified Testosterone, Total 09/25/24 N62 - Hypertrophy of breast Hemoglobin A1c 09/25/24 R73.01 - Impaired fasting glucose Medications: Refilled allopurinol 300 mg PO DAILY 90 tabs 0RF M10.9 - Gout, unspecified sertraline 50 mg PO QAM 90 tabs 0RF F41.9 - Anxiety disorder, unspecified levothyroxine 100 mcg PO DAILY 90 tabs 1RF E03.9 - Hypothyroidism, unspecified Discontinued cyclobenzaprine Discontinued Reason: Patient no longer taking 10 mg PO TID PRN 7 tabs 0RF muscle spasm
== END 2024-09-25 17:01 | disposition home or self-care (01) ==
LOC: HO.HMCH 16:29
PROVIDERS: PCP Internal Medicine; Visit Provider Internal Medicine
DX: Z00.00 Encounter for general adult medical examination without abnormal findings (principal); E03.9 Hypothyroidism, unspecified; E66.9 Obesity, unspecified; Z68.34 Body mass index [BMI] 34.0-34.9, adult; M10.9 Gout, unspecified; E78.00 Pure hypercholesterolemia, unspecified; R79.89 Other specified abnormal findings of blood chemistry; R73.01 Impaired fasting glucose; G57.93 Unspecified mononeuropathy of bilateral lower limbs; N62 Hypertrophy of breast; F41.9 Anxiety disorder, unspecified

== ENCOUNTER → 2024-09-25 16:28 | Outpatient (BNVA) | payer OTHER, SELFPAY | PROVIDERS: PCP Internal Medicine; Visit Provider Internal Medicine | DX: Z00.00 Encounter for general adult medical examination without abnormal findings (principal); E03.9 Hypothyroidism, unspecified; M10.9 Gout, unspecified; E78.00 Pure hypercholesterolemia, unspecified; R79.89 Other specified abnormal findings of blood chemistry; R73.01 Impaired fasting glucose; G57.93 Unspecified mononeuropathy of bilateral lower limbs; N62 Hypertrophy of breast; F41.9 Anxiety disorder, unspecified; E66.9 Obesity, unspecified; Z68.34 Body mass index [BMI] 34.0-34.9, adult; Z79.899 Other long term (current) drug therapy | CPT/HCPCS: 96127 ==

== ENCOUNTER 2024-11-05 09:14 | Outpatient (REF) | payer OTHER, SELFPAY ==
--- NOTE | ~2024-11-05 | XR_ITS ---
XR FOOT DYLON 3V HISTORY: Bilateral foot pain. Unspecified mononeuropathy bilateral lower limbs. COMPARISON: No prior. TECHNIQUE: 3 views of the bilateral feet were obtained. FINDINGS: RIGHT FOOT: No fracture, dislocation, or suspicious bone lesion. Joint spaces are preserved. Normal alignment. Normal plantar arch. No evidence of ankle joint effusion. Soft tissues appear normal. LEFT FOOT: No fracture, dislocation, or suspicious bone lesion. Joint spaces are preserved. Normal alignment. Normal plantar arch. No evidence of ankle joint effusion. Soft tissues appear normal. XR/XR Foot Dylon 3V IMPRESSION: LEFT FOOT: 1. Normal. RIGHT FOOT: 1. Normal. Electronically signed by: Jose Limon MD 11/07/2024 12:09 PM EDT
--- NOTE | ~2024-11-05 | XR_ITS ---
EXAMINATION: XR LUMBOSACRAL SPINE CLINICAL INFORMATION: M54.50 - Low back pain, unspecified COMPARISON: None available. TECHNIQUE: Three views of the lumbosacral spine. FINDINGS: Transitional lumbosacral anatomy with partial sacralization of the L5 vertebral body. There is pseudoarticulation of the transverse processes of L5 with the bilateral sacral alae. The vertebral bodies and posterior elements are normal. Vertebral alignment is normal. No subluxation. There is mild to moderate disc space narrowing L5-S1. Disc spaces otherwise preserved. There is mild facet degeneration spanning L4-S1. Normal facet alignment. The paraspinal soft tissues are normal. Surgical clips project over the right iliac wing. XR/XR lumbar spine 2-3V IMPRESSION: Mild/early degenerative changes most notable L4-S1. Electronically signed by: Jose Limon MD 11/07/2024 12:06 PM EDT
--- NOTE | 2024-11-05 09:17 | EMG_ITS ---
Bilateral tibial and peroneal motor studies were performed. Bilateral superficial peroneal, sural, and median and lateral plantar mixed sensory studies were performed. Tibial H reflexes were obtained and paraspinal muscles were tested with a needle. IMPRESSION: Mild to moderate mostly sensory peripheral neuropathy. MD KARLA Aguayo/TEODOROL / [id number]
--- OUTSIDE RECORDS SUMMARY | 2024-11-05 10:02 | XMS_ITS ---
[facility] Address [address] [place] [address] Care Team Providers Care Non Food Receiving Clerk Name Role Phone Tee FAM, [place] Primary Care Provider Sri Scherer Unavailable [phone] Allergies No Known Allergies REASON FOR VISIT Pcp-09/30, Ingrown nail Medications Medication SIG (Take, Route, Frequency, Duration) Notes Start Date End Date Status Keflex 500 MG 1 capsule Orally sheyla ry 12 hrs for 5 days 08/30/2023 Active Sertraline HCl 50 MG 1 tablet Orally Onc e a day for 30 day(s) Active Levothyroxine Sodium 100 MCG 1 tablet in the morning on an empty stomach Orally Once a day for 30 day(s) Active hydrOXYzine HCl 50 MG TAKE 1 TABLET BY M OUTH EVERY 8 HOURS NEEDED FOR ANXIETY Oral for 30 Days Active Neurontin 300 MG 1 capsule Orally Onc e a day at night for 90 days 10/13/2023 Active Allopurinol 300 MG 1 tablet Orally Once a day for 30 day(s) Active Social History Tobacco Use: Social History Observation Description Date Details (start date - stop date) Never Smoker NA - NA Tobacco Use/Smoking Question Answer Notes Are you a: nonsmoker Additional Findings: Tobacco Non-User Current no n-smoker Tobacco use other than smoking: Question Answer Notes Are you an other tobacco user? No Vital Signs Height 6ft in 01/26/2024 Weight 230 lbs 01/26/2024 BMI 31.19 kg/m2 01/26/2024 Encounters Encounter Location Date Provider Diagnosis [facility] [address] [place] [address] 01/26/2024 Sri Cabezas Ingrown nail L60.0 Assessments Encounter Date Diagnosis (ICD Code) Assessment Notes Treatment Notes Treatment Clinical Notes Section Notes 01/26/2024 Ingrown nail (ICD-10 - L60.0) Plan Of Treatment Medication Medication Name Sig Start Date Stop Date Notes Keflex 500 MG 1 capsule Orally every 12 hrs for 5 days Next Appt Details Follow Up: 2-4 Weeks, Reason : Procedure Notes * Category Sub-Category Detail Notes Matricectomy (OP NOTE) Consent The patie nt was brought to the examination room and placed on the table in a supine position. The pre/lilian/postoperative course, risks, complications and alternatives were discussed, understood and accepted by the patient. No guarantees were given regarding the surgical outcome Procedure A digital prep with alcohol or betadine was performed. 3cc of 1 percent Xylocaine Plain local anesthetic was administered to the toe via digital block utilizing aseptic technique. A digital touriquet was applied. The affected toenail portion was undermined, incised and resected to the eponychium and matrix. It was noted to be significantly incurvated and hypertrophied. The nailbed and matrix were curetted and the nail groove, bed and matrix were cauterized with Phenol, 3 applications of 30 seconds each from a cotton tip applicator, no underling bone was identified. The surrounding skin was protected from the Phenol with Bacitracin ointment. The tourniquet was released and capillary fill time was intact to the digit. A sterile Bacitracin dressing was applied Disposition Disposition: The pat ient tolerated the procedure and anesthesia well and left in good condition, alert, oriented and stable in no acute distress. Local wound care instructions were discussed and dispensed. There were no complications and the prognosis is favorable, Recommended alternating/staggering Tylenol XS 2 tabs and Motrin 600mg q 6 hrs ea for discomfort, Rx narcotic postop pain meds were deferred Location Bilateral borders, T A Progress Notes * Acosta ROSENBERGDOB:1990 ( 33 yo M)Acc No.[id number]:01/26/2024 Progress Note Patient:?Acosta Rosenberg Provider:?Sri Cabezas DPM :1990???Age:33 Y???Sex:Male Luis Felipe e:01/26/2024 Address:[address] [place] [address] [id number] Pcp:Toni Oliveira MD Subjective: * Chief Complaints: * ???Pcp-09/30Inggodfreyn nail * ROS:?General/Constitutional:?Nausea?denies.?Vomiting?denies.?Hunger Thirst?denies.?Loss appetite?denies.?Chills?denies.?Fatigue?denies.?Fever?denies.?Night Sweats?denies.?Unexplained weight loss?denies.?Unexplained weight gain?denies.?HEENTM:?Dentures?denies.?Dizziness?denies.?Glasses/contacts?denies.?Retinopathy?de nies.?Blurred/double vision?denies.?TMJ?denies.?Discharge/drainage?denies.?Implants?denies.?Sore throat?denies.?Dental implants?denies.?Hard of hearing ?denies.?Difficulty chewing/swallowing/speaking?denies.?Nose bleeds?denies.?Sore mouth?denies.?Respiratory:?On Oxygen?denies.?Pneumonia/pleurisy?denies.?Bronchitis?denies.?Emphysema?denies.?C oughing?denies.?Cough blood?denies.?Shortness of breath?denies.?Wheezing?denies.?Cardiovascular:?Pacemaker?denies.?MVP?denies.?WPW?denies.?CHF?denies.?Heart attack?denies.?Septal defect?denies.?Rapid beat?denies.?Chest pain ?denies.?Atrial Fib.?denies.?Murmur/Palpitations?denies.?Gastrointestinal:?Hemorrhoids?denies.?Stomach/Abdominal pain?denies.?Dark blood stool?denies.?Irritable bowel ?denies.?Constipation?denies.?Diarrhea?denies.?Hematology:?Swelling?denies.?Clots?denies.?Varicose Veins?denies.?Bruising?denies.?Bleeding problem?denies.?Genitourinary:?Blood urine?denies.?Frequent/Painfu/urination/bladder control?denies.?Kidney stones?denies.?Infection (UTI)?denies.?Nephropathy?denies.?sex trans dis (STD)?denies.?Prostate?denies.?Musculoskeletal:?Hammertoes?denies.?Bunions?denies.?Back Pain?admits.?Muscle Cramps/ Resting?denies.?Muscle cramps / walking?denies.?Generalized aches and pains?admits.?Weakness?denies.?Integ.:?Lorenzo?denies.?Scars?denies.?Corns/calluses?admits.?Ingrown nails?denies.?Painful nails?denies.?Open Sores?denies.?Rashes?denies.?Neurologic:?Difficulty sleeping?denies.?Brain disorder?denies.?Numbness?admits.?Balance trouble?denies.?Confusion?denies.?Fainting/blackouts?denies.?Tingling?admits.?Tr emors?denies.? * Medical History:? * Surgical History:?shoulder s urgery 2010 * Hospitalization/Major Diagno stic Procedure:?Denies Past Hospitalization * Family History:?Mother: marcela mendez.?Father: alive, foot problems, diagnosed with Other specified conditions influencing health status.?Paternal Grand Father: diagnosed with Unspecified heart disease.? * Social History:?Tobacco Use:?Tobacco Use/Smoking?Are you a:?nonsmoker ?Additional Findings: Tobacco Non-User?Current non-smoker ?Tobacco use other than smoking?Are you an other tobacco user??No ???Miscellaneous:?Caffeine: yes, frequency:, 2-3 cups per day. ?no Children. ?Exercise: yes, walking, working. ?Marital status: single. ?Occupation: [employer]. * Medications:?TakingAllopurin ol 300 MG Tablet 1 tablet Orally Once a daySertraline HCl 50 MG Tablet 1 tablet Orally Once a dayLevothyroxine Sodium 100 MCG Tablet 1 tablet in the morning on an empty stomach Orally Once a dayhydrOXYzine HCl 50 MG Tablet TAKE 1 TABLET BY MOUTH EVERY 8 HOURS NEEDED FOR ANXIETY Oral Neurontin 300 MG Capsule 1 capsule Orally Once a day at nightKeflex 500 MG Capsule 1 capsule Orally every 12 hrsMedication List reviewed and reconciled with the patientTaking Allopurinol 300 MG Tablet 1 tablet Orally Once a dayTaking Sertraline HCl 50 MG Tablet 1 tablet Orally Once a dayTaking Levothyroxine Sodium 100 MCG Tablet 1 tablet in the morning on an empty stomach Orally Once a dayTaking hydrOXYzine HCl 50 MG Tablet TAKE 1 TABLET BY MOUTH EVERY 8 HOURS NEEDED FOR ANXIETY Oral Taking Neurontin 300 MG Capsule 1 capsule Orally Once a day at nightTaking Keflex 500 MG Capsule 1 capsule Orally every 12 hrsMedication List reviewed and reconciled with the patient * Allergies:?N.K.D.A.yes[Aller gies Verified] Objective: * Vitals:?Ht: 6ft, Wt:230, BMI :31.19, Shoe size: 12, Ht-cm: 182.88 cm, Wt-k.33 kg. * Examination: ???Ingrown Nail: ?INSPECTION:?Reveals incurvation, pain on palpation, groove hypertrophy Bilateral nail borders TA.? Assessment: * Assessment: 1.?Ingrown nail - L60.0 (Yenni shelton)? Plan: * Treatment: * Procedures:?Matricectomy (OP NOTE):?Location?Bilateral borders, TA.?Consent?The patient was brought to the examination room and placed on the table in a supine position. The pre/lilian/postoperative course, risks, complications and alternatives were discussed, understood and accepted by the patient. No guarantees were given regarding the surgical outcome.?Procedure?A digital prep with alcohol or betadine was performed. 3cc of 1 percent ?Xylocaine Plain local anesthetic was administered to the toe via digital block utilizing aseptic technique. A digital touriquet was applied. The affected toenail portion was undermined, incised and resected to the eponychium and matrix. It was noted to be significantly incurvated and hypertrophied. The nailbed and matrix were curetted and the nail groove, bed and matrix were cauterized with Phenol, 3 applications of 30 seconds each from a cotton tip applicator, no underling bone was identified. The surrounding skin was protected from the Phenol with Bacitracin ointment. The tourniquet was released and capillary fill time was intact to the digit. A sterile Bacitracin dressing was applied .?Disposition?Disposition: The patient tolerated the procedure and anesthesia well and left in good condition, alert, oriented and stable in no acute distress. Local wound care instructions were discussed and dispensed. There were no complications and the prognosis is favorable, Recommended alternating/staggering Tylenol XS 2 tabs and Motrin 600mg q 6 hrs ea for discomfort, Rx narcotic postop pain meds were deferred.? * Procedure Codes:?85638 REMOV AL OF NAIL BED * Follow Up:?2-4 Weeks * Images: * Sign off status: Completed true * Provider:?Sri Cabezas DPM Date:? Generated for Daniel fowler/Aaron/Rekha on:?11/05/2024 10:02 AM EDT History and Physical Notes * Examination Category Sub-Category Detail Notes Category Not es Ingrown Nail INSPECTION: Reveals incurvat ion, pain on palpation, groove hypertrophy Bilateral nail borders TA
--- OUTSIDE RECORDS SUMMARY | 2024-11-05 10:02 | XMS_ITS | Patient Health Record ---
Author Organization [facility] Tomeka malvin Sushil Address [address] [place] [address] Care Team Providers Care Informatics Manager Name Role Phone Tee FAM, [place] Primary Care Provider Sri Scherer Unavailable [phone] Allergies No Known Allergies Reason For Referral No Information Medications Medication SIG (Take, Route, Frequency, Duration) Notes Start Date End Date Status Levothyroxine Sodium 100 MCG 1 tablet in the morning on an empty stomach Orally Once a day for 30 day(s) Active hydrOXYzine HCl 50 MG TAKE 1 TABLET BY M OUTH EVERY 8 HOURS NEEDED FOR ANXIETY Oral for 30 Days Active Allopurinol 300 MG 1 tablet Orally Once a day for 30 day(s) Active Sertraline HCl 50 MG 1 tablet Orally Onc e a day for 30 day(s) Active Neurontin 300 MG 1 capsule Orally Onc e a day at night for 90 days 10/13/2023 Active Keflex 500 MG 1 capsule Orally sheyla ry 12 hrs for 5 days 08/30/2023 Active Social History Tobacco Use: Social History Observation Description Date Details (start date - stop date) Never Smoker NA - NA Tobacco Use/Smoking Question Answer Notes Are you a: nonsmoker Additional Findings: Tobacco Non-User Current no n-smoker Alcohol Screen Question Answer Notes Did you have a drink contain ing alcohol in the past year? Yes How often did you have a dri nk containing alcohol in the past year? 2 to 3 times a week (3 points) Points 3 Interpretation Negative Tobacco use other than smoking: Question Answer Notes Are you an other tobacco user? No Problems Problem Type SNOMED Code ICD Code Onset Dates Problem Status W/U Status Risk Notes Problem 706758124 Neuropathy (G62.9) Active confirmed Problem Ulcer of toe of left foot (disorder) (5867406451201 9102) Skin ulcer of toe of left foot, limited to breakdown of skin (L97.521) Active confirmed Vital Signs Height 6ft in 02/09/2024 Weight 230 lbs 02/09/2024 BMI 31.19 kg/m2 02/09/2024 Encounters Encounter Location Date Provider Diagnosis [facility] [address] 01/26/2024 Sri Perica Ingrown nail L60.[address] [address] 02/09/2024 Sri Perica Skin ulcer of toe of left foot, limited to breakdown of skin L97.[address] [address] 01/18/2024 Sri Perica Cellulitis of left toe L03.032 Assessments Encounter Date Diagnosis (ICD Code) Assessment Notes Treatment Notes Treatment Clinical Notes Section Notes 01/18/2024 Cellulitis of left toe (ICD-10 - L03.032) 01/26/2024 Ingrown nail (ICD-10 - L60.0) 02/09/2024 Skin ulcer of toe of left foot, limited to breakdown of skin (ICD-10 - L97.521) Patient Educated with: WOUND CARE INSTRUCTIONS.p df (WOUND CARE INSTRUCTIONS.p df) 02/09/2024 Other Patient Educated with: WOUND CARE INSTRUCTIONS.p df (WOUND CARE INSTRUCTIONS.p df) Plan Of Treatment Pending Test Test Name Order Date X ray : Foot, left 3V 10/13/2023 X ray : Foot, right 3V 10/13/2023 Insurance Providers Payer Name Payer Address Payer Phone Subscriber Number Group Number Insured Name Patient Relationship to Insured Coverage Start Date Coverage End Date [facility] [address] [facility] [place] [id number] Acosta Rosenberg Self - patient is the insured Medical (General) History Medical History History ICD Code Anxiety Gout thyroid Surgical History Surgery Date(Month/Year) shoulder surgery 2010
--- OUTSIDE RECORDS SUMMARY | 2024-11-05 10:02 | XMS_ITS ---
Author Organization [facility] Tomeka Ling Address [address] [facility] [place] [address] Care Team Providers Care Coiled Coil Inspector Name Role Phone Tee FAM, [place] Primary Care Provider Sri Scherer Unavailable [phone] Allergies No Known Allergies REASON FOR VISIT Pcp-09/30, Open sore - Toe Medications Medication SIG (Take, Route, Frequency, Duration) Notes Start Date End Date Status Levothyroxine Sodium 100 MCG 1 tablet in the morning on an empty stomach Orally Once a day for 30 day(s) Active hydrOXYzine HCl 50 MG TAKE 1 TABLET BY M OUTH EVERY 8 HOURS NEEDED FOR ANXIETY Oral for 30 Days Active Sertraline HCl 50 MG 1 tablet Orally Onc e a day for 30 day(s) Active Neurontin 300 MG 1 capsule Orally Onc e a day at night for 90 days 10/13/2023 Active Keflex 500 MG 1 capsule Orally sheyla ry 12 hrs for 5 days 08/30/2023 Active Allopurinol 300 MG 1 tablet Orally [...] Problem Status W/U Status Risk Notes Problem Ulcer of toe of left foot (disorder) ([id number] 144775) Skin ulcer of toe of left foot, limited to breakdown of skin (L97.521) Active confirmed Vital Signs Height 6ft in 02/09/2024 Weight 230 lbs 02/09/2024 BMI 31.19 kg/m2 02/09/2024 Encounters Encounter Location Date Provider Diagnosis [facility] [place] [address] [place] [address] 02/09/2024 Sri Cabezas Skin ulcer of toe of left foot, limited to breakdown of skin L97.521 Assessments Encounter Date Diagnosis (ICD Code) Assessment Notes Treatment Notes Treatment Clinical Notes Section Notes 02/09/2024 Skin ulcer of toe of left foot, limited to breakdown of skin (ICD-10 - L97.521) Patient Educated with: WOUND CARE INSTRUCTIONS.p df (WOUND CARE INSTRUCTIONS.p df) 02/09/2024 Other Patient Educated with: WOUND CARE INSTRUCTIONS.p df (WOUND CARE INSTRUCTIONS.p df) Plan Of Treatment Treatment Notes Assessment Notes Skin ulcer of toe of left fo ot, limited to breakdown of skin Patient Educated with: WOUND CARE INSTRUCTIONS.pdf (WOUND CARE INSTRUCTIONS.pdf) Other Patient Educated wit h: WOUND CARE INSTRUCTIONS.pdf (WOUND CARE INSTRUCTIONS.pdf) Next Appt Details Follow Up: prn, Reason: Procedure Notes * Category Sub-Category Detail Notes Debride skin< 25 sq cm Open wound Physician of record performed open wound selective debridement of first 25 sq cm or less, of devitilized necrotic/nonviable soft tissue, fibrin, and exudate extending from the epidermis through the dermis, utilizing sharp dissection with sterile 15 blade, and/or tissue nippers. Sterile antibiotic dressing applied, ANESTHESIA- was DEFERRED, Pt tolerant to pain, Hemostasis was achieved through direct pressure. Post debridement measurements: 3 mm x 2 mm x 2 mm. Character of the wound post debridement is stable (96732) , The patient is to apply Antibiotic Oint. to the wound and cover with a DSD , The patient is to cont the local wound care as directed Progress Notes * Acosta ROSENBERGDOB:1990 ( 33 yo M)Acc No.[id number]:02/09/2024 Progress Notes Patient:?Acosta Rosenberg Provider:?Sri Cabezas DPM :1990???Age:33 Y???Sex:Male Luis Felipe e:02/09/2024 Address:[address] [place] [address] [id number] Pcp:Toni Oliveira MD Subjective: * Chief Complaints: * ???Pcp-09/30Open sore - Toe * ROS:?General/Constitutional:?Nausea?denies.?Vomiting?denies.?Hunger Thirst?denies.?Loss appetite?denies.?Chills?denies.?Fatigue?denies.?Fever?denies.?Night Sweats?denies.?Unexplained weight loss?denies.?Unexplained [...] Procedure:?Denies Past Hospitalization * Family History:?Mother: marcela alvarado?Father: alive, foot problems, diagnosed with Other specified conditions influencing health status.?Paternal Grand Father: diagnosed with Unspecified heart disease.? * Social History:?Tobacco Use:?Tobacco Use/Smoking?Are you a:?nonsmoker ?Additional Findings: Tobacco Non-User?Current non-smoker ?Tobacco use other than smoking?Are you an other tobacco user??No ???Miscellaneous:?Caffeine: yes, frequency:, 2-3 cups per day. ?no Children. ?Exercise: yes, walking, working. ?Marital status: single. ?Occupation: [employer]. * Medications:?TakingAllopurin ol 300 MG Tablet 1 [...] Ht-cm: 182.88 cm, Wt-k.33 kg. * Examination: ???Dermatologic: ?ULCER:? LOCATION, B/L TA SIZE, 3 mm X 2 mm X 2mm, BASE, granular, RIM, hyperkeratotic, UNDERMINING, absent, TRACKING, Full thickness breakdown of skin, DRAINAGE, serosanguineous, mild, NECROTIC TISSUE, loosely-adherent, yellow slough, MALODOR, absent, CALOR, absent, ERYTHEMA, absent, PAIN ON PALPATION, absent.? Assessment: * Assessment: 1.?Skin ulcer of toe of left foot, limited to breakdown of skin - L97.521, Response to treatment? Plan: * Treatment: 2.?Others? Notes: Patient Educated with: WOUND CARE INSTRUCTIONS.pdf (WOUND CARE INSTRUCTIONS.pdf)?? * Procedures:?Debride skin< 25 sq cm:?Open wound?Physician of record performed open wound selective debridement of first 25 sq cm or less, of devitilized necrotic/nonviable soft tissue, fibrin, and exudate extending from the epidermis through the dermis, utilizing sharp dissection with sterile 15 blade, and/or tissue nippers. Sterile antibiotic dressing applied, ANESTHESIA- was DEFERRED, Pt tolerant to pain, Hemostasis was achieved through direct pressure. Post debridement measurements: 3 mm x 2 mm x 2 mm. Character of the wound post debridement is stable (17960) , The patient is to apply Antibiotic Oint. to the wound and cover with a DSD , The patient is to cont the local wound care as directed.? * Procedure Codes:?56047 ACTIV E WOUND CARE/20 CM OR <, Modifiers: XS * Preventive Medicine:? ??Counseling:?Ulcer:?A detailed plan of care was reviewed with the patient. We emphasized the fact that the patient takes on an active participating role in the treatment process and emphasized to them that they are an included, valued, and important member of the wound healing team in order to reach an expedient successful outcome. The patient agreed to follow their medically recommended diet while increasing their protein intake if safely able to do so, maintain proper bodily hydaration, abide by weight-bearing restrictions at all times, quit all current smoking habits if any, and diligently follow any/all dressing change instructions. It was clearly made known to the patient that if they fail to do their part, they will likely extend their course of treatment as well as possibly increase their risk of adverse events including amputation. The patient was instructed on importance of proper wound care consisting of pressure reduction, and proper maintainance of a moist wound environment. The patient is to cleanse the wound with warm soapy water/peroxide/saline, or betadine BID based on product availability. The patient is to apply Antibiotic to the wound and cover with a DSD as directed. The patient was instructed to change dressings according to orders, or PRN saturation, leaks. The patient was instructed to monitor and report any signs or symptoms of infection or any untoward reactions. Precautions Taken: Offloading/Pressure reduction via rest/ limited activity to essential to daily life only, cane/ crutches/ walker/ knee scooter/ wheel chair, shoe modification, accommodative padding, sharp debridement, and take/apply medication as directed. THE GOALS of wound debridement to remove devitilized tissue, decrease risk for infection, promote wound healing and prevent further complication were discussed/reviewed. Debridement frequency as indicated.? * Follow Up:?prn * Images: * Sign off status: Completed true * Provider:?Sri Cabezas DPM Date:?08/2023 Generated for Daniel fowler/Aaron/Rekha on:?11/05/2024 10:02 AM EDT History and Physical Notes * Examination Category Sub-Category Detail Notes Category Not es Dermatologic ULCER: LOCATION, B/L TA SIZE, 3 mm X 2 mm X 2mm, BASE, granular, RIM, hyperkeratotic, UNDERMINING, absent, TRACKING, Full thickness breakdown of skin, DRAINAGE, serosanguineous, mild, NECROTIC TISSUE, loosely-adherent, yellow slough, MALODOR, absent, CALOR, absent, ERYTHEMA, absent, PAIN ON PALPATION, absent
--- OUTSIDE RECORDS SUMMARY | 2024-11-05 10:02 | XMS_ITS ---
Author Organization [facility] Address [address] [place] [address] Care Team Providers Care Flowers Salesperson Name Role Phone Tee FAM, [place] Primary Care Provider UnaSri Roth Unavailable [phone] REASON FOR VISIT Infection Medications Medication SIG (Take, Route, Frequency, Duration) Notes Start Date End Date Status Keflex 500 MG 1 capsule Orally sheyla ry 12 hrs for 7 days 08/30/2023 Active Encounters Encounter Location Date Provider Diagnosis [facility] [address] [place] [address] 01/18/2024 Sri Cabezas Cellulitis of left toe L03.032 Assessments Encounter Date Diagnosis (ICD Code) Assessment Notes Treatment Notes Treatment Clinical Notes Section Notes 01/18/2024 Cellulitis of left toe (ICD-10 - L03.032) Plan Of Treatment Medication Medication Name Sig Start Date Stop Date Notes Keflex 500 MG 1 capsule Orally every 12 hrs for 7 days Progress Notes * Acosta ROSENBERGDOB:1990 ( 33 yo M)Acc No.[id number]:01/18/2024 Patient:?ChetAcosta :1990???Age:33 Y???Sex:Male Address:[address] [place] [address] * Refills? Refill Keflex Capsule, 500 MG, Orally, 14 Capsule, 1 capsule, every 12 hrs, 7 days, Refills=0 * true * Date:? Generated for Printi ng/Faxing/Efrainitting on:?11/05/2024 10:02 AM EDT
--- OUTSIDE RECORDS SUMMARY | 2024-11-05 10:02 | XMS_ITS | Clinical Summary ---
Author Organization [facility] Address [address] [place] [address] Care Team Providers Care Auto Garage Mechanic Name Role Phone Unavailable Primary Care Provider Unavailabl e Social History Tobacco Use Types Packs/Day Years Used Date Smoking Tobacco: Never Assessed Sex and Gender Information Value Date Recorded Sex Assigned at Not on file Legal Sex Male 10:15 PM EST Gender Identity Not on file Sexual Orientation Not on file Plan of Treatment Health Maintenance Due Date Last Done Comments DTaP,Tdap,and Td Vaccines (1 - Tdap) 2008 Hepatitis B Vaccines (1 of 3 - 19+ 3-dose series) 2008 COVID-19 Vaccine (2023-2 5 season) 2024 Influenza Vaccine (Season Ended) 2025 HIB Vaccines Aged Out No longer eligi ble based on patient's age to complete this topic HPV Vaccines Aged Out No longer eligi ble based on patient's age to complete this topic Hepatitis A Vaccines Aged Out No long er eligible based on patient's age to complete this topic IPV Vaccines Aged Out No longer eligi ble based on patient's age to complete this topic MMR Vaccines Aged Out No longer eligi ble based on patient's age to complete this topic Meningococcal ACWY Vaccine Aged Out N o longer eligible based on patient's age to complete this topic Meningococcal B Vaccine Aged Out No l onger eligible based on patient's age to complete this topic Pneumococcal Vaccine: Pediat rics (0 to 5 Years) and At-Risk Patients (6 to 64 Years) Aged Out No longer eligible b ased on patient's age to complete this topic RSV Immunization Patients Un raiza 20 months Aged Out No longer eligible b ased on patient's age to complete this topic Varicella Vaccines Aged Out No longer eligible based on patient's age to complete this topic
[2024-11-05 10:44] LABS: MANUAL DIFF FLAG NO
[2024-11-05 10:59] LABS: Basophils Absolute Auto 0.1 X10*3/uL (0.0-0.2); Basophils Percent Auto 0.9 % (0-2); Eosinophils Absolute Auto 0.1 X10*3/uL (0.0-0.4); Eosinophils Percent Auto 1.7 % (0-4); Hematocrit 43.9 % (42.0-52.0); Hemoglobin 15.4 g/dl (14.0-18.0); Imm Gran Abs Auto 0.02 X10*3/uL (0.00-0.03); Imm Gran Pct Auto 0.4 % (0.0-0.4); Lymphocytes Percent Auto 36.7 % (20-40); Mean Corpuscular HGB Conc 35.1 g/dl (31.0-36.0); Mean Corpuscular Hemoglobin 32.6 pg (27.0-33.0); Mean Corpuscular Volume 92.8 fL (80.0-98.0); Mean Platelet Volume 9.1 fL (9.4-12.4); Monocytes Absolute Auto 0.4 X10*3/uL (0.1-1.2); Monocytes Percent Auto 8.2 % (2-11); Neutrophils Absolute Auto 2.8 x10*3/uL (2.0-8.3); Neutrophils Percent Auto 52.1 % (45-73); Platelet Count 210 X10*3/uL (160-400); Red Blood Count 4.73 X10*6/uL (4.60-5.80); Red Cell Distribution Width 12.9 % (11.0-16.0); White Blood Count 5.4 X10*3/uL (4.8-10.8)
[2024-11-05 11:05] LABS: Appearance Urine Clear; Color Urine Yellow; Glucose Urine UA Negative (Negative); Leukocyte Esterase Urine Negative (Negative); Nitrite Urine Negative (Negative); PH 6.5 (5.0-9.0); Urine Blood Negative (Negative); Urine Ketones Negative (Negative); Urine Protein Negative (Neg-Trace)
[2024-11-05 11:10] LABS: Estimated Average Glucose 108 mg/dL; Hemoglobin A1C 139.7731 umol/L; Hemoglobin A1c % 5.4 % (<6.0); Total Hemoglobin (HGBA1C) 3949.4757 umol/L
[2024-11-05 11:37] LABS: Erythrocyte Sedimentation Rate 17 MM/HR (0-15)
[2024-11-05 11:39] LABS: Rheumatoid Factor 13.3 IU/mL (<15.0)
[2024-11-05 11:51] LABS: Albumin Level 4.6 g/dL (3.5-5.0); Alkaline Phosphatase 59 U/L (39-117); Anion Gap 14 (12-20); Aspartate Amino Transferase 79 U/L (5-37); Bilirubin Total 0.4 mg/dL (0.0-1.0); Blood Urea Nitrogen 18 mg/dL (9-16); C Reactive Protein 0.37 mg/dL (< or = 0.50); Calcium 9.9 mg/dL (8.4-10.2); Carbon Dioxide 27 mmol/L (22-29); Chloride 103 mmol/L (96-108); Cholesterol 386 mg/dL (<200); Estimated Glomerular Filt Rate > 60; Glucose Fasting 114 mg/dL (60-99); HDL Cholesterol 60 mg/dL (>40); Potassium 4.2 mmol/L (3.3-5.1); Sodium 140 mmol/L (135-145); Total Protein 8.1 g/dL (6.5-8.0); Triglycerides 529 mg/dL (<150); Uric Acid 5.5 mg/dL (3.4-7.0)
[2024-11-05 12:13] LABS: Folate 6.4 ng/mL (> or = 4.0); Vitamin B12 359 pg/mL (200-900)
[2024-11-05 12:14] LABS: Free T4 (Free Thyroxine) 0.84 ng/dL (0.71-1.85); Thyroid Stimulating Hormone 4.04 uIU/mL (0.32-4.0); Vitamin D 25-OH Total 14.5 ng/mL (>30)
[2024-11-05 12:45] LABS: Alanine Aminotransferase 97 U/L (0-40)
[2024-11-06 10:39] LABS: Prolactin 8.9 ng/mL (2.0-18.0)
[2024-11-07 13:59] LABS: Anti Nuclear Antibody Screen NEGATIVE (NEGATIVE)
[2024-11-09 18:13] LABS: Estrogen 90 pg/mL (< OR = 404)
[2024-11-10 07:53] LABS: Testosterone, Total 454 ng/dL (250-1100)
== END 2024-11-05 09:15 | disposition home or self-care (01) ==
LOC: HO.NEURO 09:14
PROVIDERS: Visit Provider Internal Medicine
DX: R20.0 Anesthesia of skin (principal); R20.2 Paresthesia of skin; G57.93 Unspecified mononeuropathy of bilateral lower limbs; E53.8 Deficiency of other specified B group vitamins; M25.50 Pain in unspecified joint; N62 Hypertrophy of breast; D64.9 Anemia, unspecified; E55.9 Vitamin D deficiency, unspecified; E03.9 Hypothyroidism, unspecified; E78.00 Pure hypercholesterolemia, unspecified; R30.0 Dysuria; M79.7 Fibromyalgia; M10.9 Gout, unspecified; R73.01 Impaired fasting glucose; M54.50 Low back pain, unspecified
CPT/HCPCS: 36415; 72100; 73630; 80053; 80061; 81003; 82306; 82607; 82672; 82746; 83036; 84146; 84403; 84439; 84443; 84550; 85025; 85652; 86038; 86140; 86431; 95886; 95913

== ENCOUNTER → 2024-11-05 09:56 | Outpatient (BNV) | payer OTHER, SELFPAY | PROVIDERS: Visit Provider Radiology Diagnostic Radiology | DX: M54.50 Low back pain, unspecified (principal); G57.93 Unspecified mononeuropathy of bilateral lower limbs | CPT/HCPCS: 72100; 73630 ==

== ENCOUNTER 2025-04-11 10:42 | Outpatient (AMB) | payer OTHER, SELFPAY ==
--- NOTE | 2025-04-11 10:46 | A.OFFPC_ITS ---
Vital Signs 04/11/25 10:47 04/11/25 11:24 Height 6 ft Weight 255 lb 4 oz BMI 34.6 BP 150/94 H 148/98 H Blood Pressure Location Lt brachial Lt brachial Position Sitting Sitting Pulse 121 H Pulse Source Pulse Oximeter Pulse Oximetry (%) 97 Oxygen Delivery Method Room Air Intake Visit Reasons: 6 Months f/u Respiratory Supervisor Required: No Accompanied by: Self / Same As Patient Allergies No Known Allergies Allergy (Verified 04/11/25 11:18) Medication List - Last Reconciled 04/11/25 by Toni Oliveira MD allopurinol 300 mg PO DAILY hydroxyzine HCl 50 mg PO Q8H PRN 30 days levothyroxine 100 mcg PO DAILY sertraline 50 mg PO QAM Tobacco use date assessed: 04/11/25 Dental Screening Dental Screen Date: 04/11/25 Did you have a dental visit in the last 12 months?: Yes Did you have a dental problem in the last 6 months where you did not have access to dental care?: No Was dental information given to patient?: Patient has dentist HPI 6 Months f/u HPI Details Patient comes in today for his follow up visit States that he feels okay He denies any headaches or dizziness Denies any chest pains, no SOB No nausea/vomiting, no abdominal pain No change in bowel habits noted States that he is still experiencing frequent/persistent pain and numbness in both of his feet, described as a deep-seated pain and burning sensation that often feels worse at night and when he is on his feet for a long time when he is at work Recalls that podiatry wanted him to start taking Gabapentin 300 mg Q HS but he did not start the medication due to concerns about its potential side effects Adds that he has a recurrent lesion on the tip of his left middle finger that keeps growing back - states that this is similar to the one on his big toe that podiatry has removed a couple of times but it seems to keep growing back when it is healing Would like to see if he can be referred to have the lesion on his finger finally resolved He would like to know how his NCV and EMG done a couple of months ago came out Would also like to go over the results of his labs done earlier this year [facility] Medical History (Updated 04/11/25 @ 11:31 by Toni Oliveira MD) Pure hypercholesterolemia Obesity (BMI 30-39.9) Elevated LFTs Anxiety disorder Acquired hypothyroidism Gout Surgical History History of eye surgery History of appendectomy History of shoulder surgery Family History Mother No problems noted. Father No problems noted. Social History Housing: House Alcohol intake: current Alcohol intake frequency: a few times a month Patient Tobacco Use Status: Never used Tobacco e-Cigarette/Vaping Use: Never Used service: No Current occupational status: employed Cognitive needs: No Hearing needs: No Vision needs: No Questionnaire Thrive Questionnaire Date Thrive assessed: 09/25/24 I am a: Patient What is your living situation today?: I have a steady place to live Within the past 12 months, did the food you bought not last and you didn't have the money to get more?: I choose not to answer this question Within the past 12 months, did you worry whether your food would run out before you got money to buy more?: I choose not to answer this question Do you have trouble paying for medicines?: I choose not to answer this question Do you have trouble getting transportation to medical appointments?: I choose not to answer this question Do you have trouble paying your heating and electricity bill?: I choose not to answer this question Do you have trouble taking care of your child, family member or friend?: I choose not to answer this question Do you have trouble with day-to-day activities such as bathing, preparing meals, shopping, managing finances, etc.?: I choose not to answer this question Are you currently unemployed and looking for a job?: I choose not to answer this question Are you interested in more education?: I choose not to answer this question Please select the resources that you would like help with: None Currently or been in a relationship where the following occur: I choose not to answer THRIVE Score: 0 AUDIT C Alcohol Use Questionnaire (AUDIT-C) 1. How often do you have a drink containing alcohol?: 2-3 times a week 2. How many drinks containing alcohol do you have on a typical day when you are drinking?: 3 or 4 3. How often do you have six or more drinks on one occasion?: Less than monthly Total Score: 5 Score Reviewed/Action Taken: Yes IVY-7 AMB Questionnaire IVY-7 Date IVY - 7 assessed: 09/25/24 Source: Developed by Drs. Chicho Barragan, Charisse Washington, Russel Alejo and colleagues, with an educational zoe from [employer]. Review of Systems Const Denies chills, Denies fatigue, Denies fever(s) and Denies headache(s) ENT Denies dysphagia, Denies dizziness, Denies otalgia, Denies headache(s), Denies neck pain, Denies odynophagia and Denies sore throat Card Denies chest pain, Denies irregular heart rhythm, Denies palpitations and Denies dyspnea Resp Denies chest congestion, Denies cough and Denies dyspnea GI Denies abdominal pain, Denies constipation, Denies dysphagia, Denies heartburn, Denies diarrhea, Denies nausea, Denies odynophagia and Denies vomiting Denies difficulty urinating, Denies dysuria and Denies urinary frequency Musc Denies back pain, Denies arthralgias, Denies neck pain and Reports numbness (in both feet, on and off) Skin/Breast Details: (+) recurrent lesion on the tip of the left middle finger - see HPI Denies rash Neuro Denies dizziness, Denies headache(s), Reports numbness (in both feet, on and off) and Reports paresthesias (in both feet) Endo Denies fatigue and Denies palpitations Physical exam (Primary Care) Vital Signs: Last Vital Signs Pulse 121 H 04/11/25 10:47 BP 148/98 H 04/11/25 11:24 Pulse Ox 97 04/11/25 10:47 Oxygen Delivery Method Room Air 04/11/25 10:47 BMI result Body Mass Index 34.6 Tobacco/Smoking Status: Tobacco use Status Tobacco use date assessed 04/11/25 04/11/25 10:49 Patient Tobacco Use Status Never used Tobacco 04/11/25 10:49 e-Cigarette/Vaping Use Never Used 04/11/25 10:49 Thrive Assessment: Date of Thrive Assessment Date Thrive assessed 09/25/24 04/11/25 10:49 Currently or been in a relationship where the following occur: I choose not to answer Const General: no acute distress and alert HENMT Ears: TM's normal bilaterally and EAC's normal Throat: Yes posterior oropharynx normal and Yes tonsils normal (no TP congestion) Neck Neck: Yes supple and No lymphadenopathy Thyroid: Thyroid normal Resp Auscultation: clear to auscultation bilaterally, no rales and no wheezes Cardio Rate: regular rate Rhythm: regular rhythm Heart sounds: no murmurs GI Palpation (GI): Soft to palpation and nontender Auscultation: normal bowel sounds General: Yes no CVA tenderness Back/Spine/Pelvis Back: no CVA tenderness Thoracic/Lumbar Spine: No lumbar spinal tenderness Skin Rashes: no rashes Extrem General: Yes normal to inspection and Yes no clubbing, cyanosis or edema Results Reviewed Results Reviewed: Laboratory Tests 11/05/24 11/05/24 11/05/24 10:39 10:41 10:43 WBC 5.4 Hgb 15.4 Hct 43.9 Plt Count 210 Sodium 140 Potassium 4.2 Creatinine 0.88 Estimated GFR > 60 Fasting Glucose 114 H Hemoglobin A1c % 5.4 Uric Acid 5.5 Calcium 9.9 AST 79 H ALT 97 H Total Protein 8.1 H Triglycerides 529 H Cholesterol 386 H LDL Cholesterol, Calc TNP HDL Cholesterol 60 Vitamin B12 359 25-OH Vitamin D Total 14.5 L TSH 4.04 H Free T4 0.84 Estrogen 90 Prolactin 8.9 Total Testosterone 454 Ur Specific [place] 1.020 Urine Protein Negative Urine Glucose (UA) Negative Urine Blood Negative Urine Nitrite Negative Ur Leukocyte Esterase Negative Rheumatoid Factor 13.3 OMA Screen NEGATIVE Coding Level of Care Code Est Pt Level 4 (39831) Diagnoses Pure hypercholesterolemia E78.00 Acquired hypothyroidism E03.9 Gout, unspecified cause, unspecified chronicity, unspecified site M10.9 Gout site: unspecified site Gout etiology: unspecified cause Chronicity: unspecified Elevated LFTs R79.89 Impaired fasting glucose R73.01 Finger lesion L98.9 Neuropathic pain of both feet G57.93 Anxiety F41.9 Obesity (BMI 30-39.9) E66.9 Assessment & Plan Assessment & Plan (1) Pure hypercholesterolemia: Code(s): E78.00 - Pure hypercholesterolemia, unspecified Category: Medical Plan: Results of his labs done back in October 2024 reviewed and discussed with patient Patient is cautioned that his cholesterol levels have increased significantly from previous, with his total cholesterol now at 386 mg/dl (was 243 mg/dl previously and his serum triglyceride level is over 500 mg/dl (529) His LDL cholesterol was previously at 175 mg/dl back in December 2023 but is not calculable at this time as his serum TG is over 400 mg/dl Reinforced low cholesterol diet Have advised patient we will need to consider starting him on cholesterol- lowering medications if his numbers do not improve significantly over the next few months Will recheck his labs and fasting lipids in 3 months for follow up (2) Acquired hypothyroidism: Code(s): E03.9 - Hypothyroidism, unspecified Category: Medical Plan: His TFTs were normal on his recent labs Continue Levothyroxine 100 mcg QD (3) Gout: Code(s): M10.9 - Gout, unspecified Category: Medical Qualifiers: Gout site: unspecified site Gout etiology: unspecified cause Chronicity: unspecified Qualified Code(s): M10.9 - Gout, unspecified Plan: Reinforced low purine diet Patient states that he has not had any flare ups of gout over the past year and his serum uric acid level has been normal when checked over the past couple of years His serum uric acid level was normal at 5.5 when last checked in October 2024 Continue Allopurinol 300 mg QD (4) Elevated LFTs: Code(s): R79.89 - Other specified abnormal findings of blood chemistry Category: Medical Plan: His LFTs have also gone up significantly from his numbers back in December 2023, likely due to hepatosteatosis related to his weight Will continue to monitor his LFTs regularly (5) Impaired fasting glucose: Code(s): R73.01 - Impaired fasting glucose Category: Medical Plan: His FBS was elevated at 114mg/dl on his labs done back in October 2024; his HgbA1c was normal at 5.4% Reinforced low calorie/low carb diet Will recheck his FBS and HgbA1c in 3 months for follow up (6) Finger lesion: Code(s): L98.9 - Disorder of the skin and subcutaneous tissue, unspecified Category: Medical Plan: Will refer him to surgery for further management and consideration for excision of the lesion on his finger (7) Neuropathic pain of both feet: Code(s): G57.93 - Unspecified mononeuropathy of bilateral lower limbs Category: Medical Plan: He was seen and evaluated for this issue by podiatry last year and was advised that he likely has neuropathy of both feet He was started on a trial of Gabapentin 300 mg Q HS but patient decided not to take the Rx as he does not like the potential side effects listed on the PI of the Rx He was also sent for x-rays of both feet at the time and he was able to finally get them done in October 2024 - x-rays of both feet came back normal Patient reports (+) strong family history of neuropathy - CMT (Daottco-Kxysv-Xwldo disease) should be considered in the differential EMG and NCV of both lower extremities done in October 2024 revealed (+) mild to moderate mostly sensory peripheral neuropathy Will go ahead and start him on Gabapentin 100 mg BID (8) Anxiety: Code(s): F41.9 - Anxiety disorder, unspecified Category: Medical Plan: Continue Sertraline 50 mg QD and Hydroxyzine 50 mg TID PRN (9) Obesity (BMI 30-39.9): Code(s): E66.9 - Obesity, unspecified Category: Medical Plan: Reinforced diet/exercise as tolerated/lose weight Plan Follow up in 3 months Orders: Orders Thyroid Stimulating Hormone 3 Months E03.9 - Hypothyroidism, unspecified Vitamin D 25-OH Total 3 Months E55.9 - Vitamin D deficiency, unspecified UA CC w/rflx Micro + Cult 3 Months R30.0 - Dysuria Comprehensive [place]. Panel Fast 3 Months E78.00 - Pure hypercholesterolemia, unspecified Complete Blood Count Auto Diff 3 Months D64.9 - Anemia, unspecified Lipid Panel 3 Months E78.00 - Pure hypercholesterolemia, unspecified Free T4 (Free Thyroxine) 3 Months E03.9 - Hypothyroidism, unspecified Referrals General Surgery Referral L98.9 - Disorder of the skin and subcutaneous tissue, unspecified Medications: New gabapentin 100 mg PO BID 60 caps 3RF 30 days
[2025-04-11 10:47] VITALS: BP 150/94; PULSE 121; O2SAT 97; BMI 34.6
[2025-04-11 11:24] VITALS: BP 148/98
--- OUTSIDE RECORDS SUMMARY | 2025-04-11 11:42 | XMS_ITS | Clinical Summary ---
Author Organization [facility] it Address [address] [place] [address] Care Team Providers Care Executive Sous Chef Name Role Phone Unavailable Primary Care Provider [...] of 3 - 19+ 3-dose series) 2008 HPV Vaccines (1 - 3-dose SCD M series) 2016 Depression Screening 07/10/2024 COVID-19 Vaccine (1 - 2023-2 5 season) 2025 Influenza Vaccine (#1) 2025 RSV Immunization Adult Patie nts (1 - 1-dose 75+ series) 2064 HIB Vaccines Aged Out No longer eligi [...] 5 Years) and At-Risk Patients (6 to 49 Years) Aged Out No longer eligible b ased on patient's age to complete this topic RSV Immunization Patients Un raiza 20 months Aged Out No longer eligible b ased on patient's age to complete this topic Varicella Vaccines Aged Out No longer eligible based on patient's age to complete this topic
--- OUTSIDE RECORDS SUMMARY | 2025-04-11 11:42 | XMS_ITS | Patient Health Record ---
Author Organization [facility] Tomeka malvin Sturgeon Address [address] [place] [address] Care Team Providers Care Panel Beater Name Role Phone Tee FAM, [place] Primary Care Provider Sri Scherer Unavailable [phone] Allergies No Known Allergies Reason For Referral No Information Medications Medication SIG (Take, Route, Frequency, Duration) Notes Start Date End Date Status Allopurinol 300 MG 1 tablet Orally Once a day; Duration: 30 day(s) Active Levothyroxine Sodium 100 MCG 1 tablet in the morning on an empty stomach Orally Once a day; Duration: 30 day(s) Active Sertraline HCl 50 MG 1 tablet Orally Onc e a day; Duration: 30 day(s) Active Work Note . Patient had procedur e on 01/03/25, out of work until 01/08/25 . 01/06/2025 Active Neurontin 300 MG 1 capsule Orally Onc e a day at night; Duration: 90 days 10/13/2023 Active hydrOXYzine HCl 50 MG TAKE 1 TABLET BY M OUT EVERY 8 HOURS NEEDED FOR ANXIETY Oral; Duration: 30 Days Active Keflex 500 MG 1 capsule Orally sheyla ry 12 hrs; Duration: 5 days 08/30/2023 Active Immunizations Vaccine Route Administration Date Status Comme nts Influenza Unknown 01/03/2025 Refused Social History Tobacco Use: Social History Observation [...] an other tobacco user? No Vital Signs Blood pressure diastolic 82 mm Hg 01/03/2025 Height 6ft in 01/03/2025 Blood pressure systolic 120 mm Hg 01/03/2025 Weight 240 lbs 01/03/2025 BMI 32.55 kg/m2 01/03/2025 Encounters Encounter Location Date Provider [facility] [address] [place] [address] 01/03/2025 Sri Perica Ingrown nail L60.[address] [address] 12/16/2024 [facility] [address] [place] [address] 12/31/[address] [address] 01/06/2025 Sri Perica Ingrown nail L60.0 Assessments Encounter Date Diagnosis (ICD Code) Assessment Notes Treatment Notes Treatment Clinical Notes Section Notes 01/03/2025 Ingrown nail (ICD-10 - L60.0) 01/06/2025 Ingrown nail (ICD-10 - L60.0) Plan Of Treatment Pending Test Test Name Order Date X ray : Foot, left 3V 10/13/2023 X ray : Foot, right 3V 10/13/2023 Insurance Providers Payer Name Payer Address Payer Phone Subscriber Number Group Number Insured Name Patient Relationship to Insured Coverage Start Date Coverage End Date [facility] [address] [place] [address] [id number] Acosta Rosenberg Self - patient is the insured Medical (General) History Medical History History ICD Code Anxiety Gout thyroid Surgical History Surgery Date(Month/Year) shoulder surgery 2010
== END 2025-04-11 11:37 | disposition home or self-care (01) ==
LOC: HO.HMCH 10:42
PROVIDERS: PCP Internal Medicine; Visit Provider Internal Medicine
DX: E78.00 Pure hypercholesterolemia, unspecified (principal); E03.9 Hypothyroidism, unspecified; E66.9 Obesity, unspecified; Z68.34 Body mass index [BMI] 34.0-34.9, adult; M10.9 Gout, unspecified; R79.89 Other specified abnormal findings of blood chemistry; R73.01 Impaired fasting glucose; L98.9 Disorder of the skin and subcutaneous tissue, unspecified; G57.93 Unspecified mononeuropathy of bilateral lower limbs; F41.9 Anxiety disorder, unspecified

== ENCOUNTER 2025-05-28 11:37 | Outpatient (AMB) | payer OTHER, SELFPAY ==
--- NOTE | 2025-05-28 11:58 | A.OFFPC_ITS ---
Vital Signs 05/28/25 11:59 Height 6 ft Weight 244 lb 6 oz BMI 33.1 BP 138/98 H Blood Pressure Location Lt brachial Position Sitting Pulse 88 Pulse Source Pulse Oximeter Temp 97.3 F Temp Source Temporal Artery Scan Pulse Oximetry (%) 98 Oxygen Delivery Method Room Air Intake Visit Reasons: cough, congestion Intake Note: Patient is here to follow up on Cough and Congestion. Splash Line Operator Required: No Contractor General Engineering: Not Required per policy Accompanied by: Self / Same As Patient Allergies No Known Allergies Allergy (Verified 05/28/25 11:58) Medication List - Last Reconciled 05/28/25 by Rohan Helm MD allopurinol 300 mg PO DAILY gabapentin 100 mg PO BID 30 days hydroxyzine HCl 50 mg PO Q8H PRN 30 days levothyroxine 100 mcg PO DAILY sertraline 50 mg PO QAM Tobacco use date assessed: 05/28/25 Dental Screening Dental Screen Date: 04/11/25 HPI HPI Comments History of Present Illness Details The patient is a 34-year-old male presenting with symptoms of an upper respiratory infection that began last . He reports consistently blowing cooper and yellow mucus and experiences a choking sensation in his throat, particularly upon waking, which can cause difficulty breathing. He denies chest pain. He denies fever, chills, and or muscle/ joint pain. The patient's medical history is significant for gout, for which he takes allopurinol, and neuropathy. He has a prescription for gabapentin for the neuropathy but has not been taking it, expressing a desire to find the underlying cause of the problem rather than masking it. His medications include levothyroxine and sertraline. He has a prescription for hydroxyzine for e mergency use but has not taken it recently. Due to elevated cholesterol in the last year, the patient has been following a very strict diet, primarily consisting of salad. [facility] Medical History (Updated 05/28/25 @ 13:04 by Rohan Helm MD) Pure hypercholesterolemia Obesity (BMI 30-39.9) Elevated LFTs Anxiety disorder Acquired hypothyroidism Gout Surgical History History of eye surgery History of appendectomy History of shoulder surgery Family History (Updated 05/28/25 @ 11:58 by PAMELA Wallis) Mother No problems noted. Father No problems noted. Social History Housing: House Alcohol intake: current Alcohol intake frequency: a few times a month Patient Tobacco Use Status: Never used Tobacco e-Cigarette/Vaping Use: Never Used Second Hand Smoke Exposure: No service: No Current occupational status: employed Cognitive needs: No Hearing needs: No Vision needs: No Questionnaire Thrive Questionnaire Date Thrive assessed: 09/25/24 I am a: Patient What is your living situation today?: I have a steady place to live Within the past 12 months, did the food you bought not last and you didn't have the money to get more?: I choose not to answer this question Within the past 12 months, did you worry whether your food would run out before you got money to buy more?: I choose not to answer this question Do you have trouble paying for medicines?: I choose not to answer this question Do you have trouble getting transportation to medical appointments?: I choose not to answer this question Do you have trouble paying your heating and electricity bill?: I choose not to answer this question Do you have trouble taking care of your child, family member or friend?: I choose not to answer this question Do you have trouble with day-to-day activities such as bathing, preparing meals, shopping, managing finances, etc.?: I choose not to answer this question Are you currently unemployed and looking for a job?: I choose not to answer this question Are you interested in more education?: I choose not to answer this question Please select the resources that you would like help with: None Currently or been in a relationship where the following occur: I choose not to answer THRIVE Score: 0 IVY-7 AMB Questionnaire IVY-7 Date IVY - 7 assessed: 09/25/24 Source: Developed by Drs. Chicho Barragan, Charisse Washington, Russel Alejo and colleagues, with an educational zoe from [employer]. Review of Systems Const Details: As per HPI. Physical exam (Primary Care) Vital Signs: Last Vital Signs Temp 97.3 F 05/28/25 11:59 Pulse 88 05/28/25 11:59 BP 138/98 H 05/28/25 11:59 Pulse Ox 98 05/28/25 11:59 Oxygen Delivery Method Room Air 05/28/25 11:59 BMI result Body Mass Index 33.1 Tobacco/Smoking Status: Tobacco use Status Tobacco use date assessed 05/28/25 05/28/25 12:03 Patient Tobacco Use Status Never used Tobacco 05/28/25 12:03 e-Cigarette/Vaping Use Never Used 05/28/25 12:03 Thrive Assessment: Date of Thrive Assessment Date Thrive assessed 09/25/24 05/28/25 12:03 Currently or been in a relationship where the following occur: I choose not to answer Const Other: Pertinent findings are in BOLD GENERAL APPEARANCE NAD, activity normal for age, well developed/ well nourished, no cyanosis, pallor, or diaphoresis. EYES lids/conjunctiva normal. EARS/NOSE/THROAT Mucous membranes moist, nares normal, lips/teeth normal uvula midline without oral pharyngeal erythema, exudate or swelling TMs normal bilaterally. No lymphangitis/lymphedema. HEAD/NECK normocephalic atraumatic, no facial trauma, neck is supple. RESPIRATORY respiratory effort normal, speaks in full sentences, no tripod position, no accessory muscle use. Lungs clear to auscultation without rhonchi, wheezes, rales CARDIAC Regular rate and rhythm, no edema. ABDOMINAL Soft, ND/NT. No evidence of fluid wave. No pulsatile masses on exam, rebound tenderness, Perry sign or pain over Mcburney's point. MUSCLES/EXTREMITIES No abnormal range of motion, no swelling. SKIN Warm, pink and dry. No rashes, dermatoses, petechiae or lesions. NEUROLOGICAL Speech is clear and appropriate. Normal level of consciousness. Gait and coordination are normal. 5/5 strength in all extremities. PSYCH Normal mood and affect. Judgement/competence is appropriate Coding Level of Care Code Est Pt Level 3 (28867) Diagnoses Bacterial sinusitis J32.9; B96.89 Neuropathic pain of both feet G57.93 Time Spent (min) 20 Assessment & Plan Assessment & Plan (1) Bacterial sinusitis: Code(s): J32.9 - Chronic sinusitis, unspecified; B96.89 - Other specified bacterial agents as the cause of diseases classified elsewhere Category: Medical Plan: - Prescribed Augmentin for five days. - Prescribed Flonase nasal spray to help with symptoms. - Prescribed Claritin, 10 pills, to be taken once daily. - Advised against taking Claritin with hydroxyzine. - Recommended [id number] Tylenol for symptom management. - Advised to return in one week if there is no improvement. (2) Neuropathic pain of both feet: Code(s): G57.93 - Unspecified mononeuropathy of bilateral lower limbs Category: Medical Plan: - Provided extensive counseling on the potential link between diet and chronic inflammatory conditions such as gout, neuropathy, anxiety, and depression. - Recommended a trial of an elimination diet, specifically avoiding gluten and dairy products for one to two weeks to observe for any symptomatic improvement. - The patient expressed that he is not currently taking his prescribed gabapentin for neuropathy as he wishes to identify the root cause of his symptoms. Plan I discussed the management for the patient's acute upper respiratory illness and prescribed Augmentin for 5 days, along with Flonase and Claritin for symptomatic relief. I advised him he can also use Tylenol as needed. We had an extensive discussion regarding his chronic conditions, including gout, neuropathy, anxiety, and depression, and their potential link to diet. I explained that foods such as dairy, gluten, red meat, and sugar can be inflammatory and may contribute to his symptoms. I recommended he try eliminating gluten and dairy for one to two weeks to see if he notices an improvement. I explained that finding dietary triggers could be an answer for his chronic issues, as he is seeking to find the root cause rather than just mask symptoms with medications like gabapentin. I counseled him to return in one week if his acute illness does not improve. Medications: New amoxicillin-pot clavulanate 500-125 mg (Augmentin) 1 tab PO BID 10 tabs 0RF fluticasone propionate 50 mcg/actuation (Flonase Allergy Relief) administer into each nostril 1 spray intranasal BID 16 grams 0RF loratadine (Claritin) 10 mg PO DAILY 10 tabs 0RF
[2025-05-28 11:59] VITALS: BP 138/98; PULSE 88; TEMP 36.3; O2SAT 98; BMI 33.1
--- OUTSIDE RECORDS SUMMARY | 2025-05-28 22:45 | XMS_ITS | Patient Health Record ---
Author Organization [facility] Tomeka malvin Rico Address [address] [place] [address] Care Team Providers Care Director Business Development Name Role Phone Tee FAM, [place] Primary Care Provider Sri Scherer Unavailable [phone] Allergies No Known Allergies Reason For Referral [...] 01/03/2025 Encounters Encounter Location Date Provider Diagnosis [facility] [address] [place] [address] 01/03/2025 Sri Perica Ingrown nail L60.[address] [address] 12/16/2024 Sri Perica [facility] [address] [place] [address] 12/31/[address] [address] 01/06/2025 Sri Perica Ingrown nail L60.0 Assessments [...] Insured Coverage Start Date Coverage End Date [facility] [address] [place] [address] [id number] Acosta Rosenberg Self - patient is the insured Medical (General) History Medical History History ICD Code Anxiety Gout thyroid Surgical History Surgery Date(Month/Year) shoulder surgery 2010
== END 2025-05-28 12:29 | disposition home or self-care (01) ==
LOC: HO.HMCH 11:38
PROVIDERS: PCP Internal Medicine; Visit Provider Internal Medicine
DX: J32.9 Chronic sinusitis, unspecified (principal); B96.89 Other specified bacterial agents as the cause of diseases classified elsewhere; G57.93 Unspecified mononeuropathy of bilateral lower limbs